=== PATIENT | female | born 1950 | race Caucasian/White ===

== ENCOUNTER → 2019-02-27 | Outpatient (CLI) | payer MEDICAID, MEDICARE | LOC: RAD 17:06 → MERGE 17:06 | PROVIDERS: ATTEND Family Medicine | DX: R51 Headache (principal) ==

== ENCOUNTER → 2019-04-23 | Outpatient (CLI) | payer MEDICAID, MEDICARE ==
--- NOTE | 2019-04-23 17:01 | RADIOLOGY REPORT (SQ) ---
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 TECHNIQUE: CT scan performed of the chest without intravenous contrast. Images reviewed with lung, soft tissue and bone windows. Reconstructed coronal and sagittal MPR images reviewed. All images st ored on PACS. All CT scanners at this facility use dose modulation, iterative reconstruction, and/or weight based d osing when appropriate to reduce radiation dose to as low as reasonably achievable (ALARA). [facility]: Dose Right [facility]: CareDose [facility]: Dose Right [facility]: Teradose 4D [facility]: Smart Technologies RADIATION DOSE: CT Rad equipment meets quality standard of care and radiation dose reduction techniq ues were employed. CTDIvol: 11.0 mGy. DLP: 408 mGy-cm. LIMITATIONS: No technical limitations. FINDINGS: LUNGS AND PLEURA: The trachea and main bronchi are patent. There is no bronchiectasis, br onchiolectasis or honeycombing. The partially calcified perifissural nodule in the right lower lobe (image 60 of series 4) is stable from 11/26/2017. There are also several noncalcified subpleural nodu les that are stable in size and number from the prior CT ; these include the 4 mm nodule on image 44 of series 4. The ground-glass opacities with a gravitational predilection associated with septal thickening are un changed. The curvilinear opacities that extend inward from the pleural surfaces could represent pare nchymal bands. There is no consolidation, pleural effusion, pleural thickening, or pneumothorax. HILAR AND MEDIASTINAL STRUCTURES: Evaluation of the tamy for adenopathy is limited due to the absence of intravenous contrast. There are stable nonenlarged right upper paratracheal, right lower peritra cheal and subcarinal lymph nodes. There is no mediastinal mass or pneumomediastinum. HEART AND VASCULAR STRUCTURES: No aneurysm of the thoracic aorta. There is atherosclerotic calcifica tion of the coronary arteries. There is no cardiomegaly or pericardial effusion. UPPER ABDOMEN: Cholecystectomy clips in the gallbladder fossa and surgical line anterior to the stoma ch. The spleen is normal in size. The 2.3 cm water attenuation cyst in the upper pole of the left k idney is unchanged. The 12 mm lipid rich adenoma in the right adrenal gland is also unchanged. BONES: No acute findings HARDWARE: None in the chest. OTHER: No other findings. IMPRESSION: Ground-glass opacities with a gravitational predilection associated with septal thickeni ng are unchanged. There are no ancillary findings of fibrosis including bronchiectasis, bronchiolect asis or honeycombing. Differential considerations include among other things pulmonary edema and air trapping in the setting of an obstructive small airway process such as asthma. TECHNICAL DOCUMENTATION: JOB ID: [id number] Quality ID # [id number]: Final reports with documentation of one or more dose reduction techniques (e.g., Au tomated exposure control, adjustment of the mA and/or kV according to patient size, use of iterative reconstruction technique) 2010 [employer]- All Rights Reserved Reading location - IP/workstation name: [email or web address]
== END ==
LOC: MERGE 03-17 13:00 → RAD 13:07
PROVIDERS: ATTEND Internal Medicine Critical Care Medicine
DX: J45.909 Unspecified asthma, uncomplicated (principal); J84.89 Other specified interstitial pulmonary diseases
CPT/HCPCS: 71250

== ENCOUNTER 2019-05-10 14:23 | Emergency (ER) | payer MEDICARE ==
[2019-05-10 14:29] VITALS: BP 146/68
--- NOTE | 2019-05-10 15:14 | ER Document Report ---
HPI - HPI Patient complains to provider of: right shoulder pain Time Seen by Provider: 05/10/19 15:05 Onset: Other - 3 days increased pain Pain Level: 3 Context: 68-year-old female with history of arthritis presents emergency department with complaints of right shoulder pain. Denies trauma. Reports she has arthritis but the pain is hurting more. She reports she took 3 of her hydrocodone this morning without relief of symptoms. Denies fever vomiting diarrhea. Denies trauma. Reports it hurts to move the shoulder. Associated Symptoms: None Exacerbated by: Movement Relieved by: Denies Similar symptoms previously: Yes Recently seen / treated by doctor: No - REPRODUCTIVE Reproductive: DENIES: : - MUSCULOSKELETAL Musculoskeletal: REPORTS: Extremity pain Past Medical History - General Information source: Patient - Social History Smoking Status: Never Smoker Frequency of alcohol use: None Drug Abuse: None Family History: Malignancy, CAD, DM Patient has suicidal ideation: No Patient has homicidal ideation: No - Past Medical History Cardiac Medical History: Reports: Hx Hypercholesterolemia Denies: Hx Atrial Fibrillation, Hx Congestive Heart Failure, Hx Coronary Artery Disease, Hx Heart Attack, Hx Hypertension, Hx Peripheral Vascular Disease, Hx Pulmonary Embolism, Hx Heart Murmur Pulmonary Medical History: Reports: Hx Asthma, Hx COPD, Hx Pneumonia Denies: Hx Bronchitis, Hx Respiratory Failure, Hx Sleep Apnea, Hx Tuberculosis Neurological Medical History: 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 Denies: Hx Seizures Renal/ Medical History: Reports: Hx Kidney Stones. Denies: Hx End Stage Renal Disease, Hx Peritoneal Dialysis Malignancy Medical History: Denies: Hx Lung Cancer GI Medical History: Reports: Hx Gastroesophageal Reflux Disease. Denies: Hx Crohn's Disease, Hx Hepatitis, Hx Hiatal Hernia, Hx Irritable Bowel, Hx Liver Failure, Hx Pancreatitis, Hx Ulcer Musculoskeletal Medical History: Reports Hx Arthritis - back, Reports Hx Fibromyalgia, Denies Hx Muscular Dystrophy Skin Medical History: Denies Hx Psoriasis Psychiatric Medical History: Reports: Hx Anxiety, Hx Depression Denies: Hx Bipolar Disorder, Hx Post Traumatic Stress Disorder, Hx Schizophrenia Traumatic Medical History: Denies: Hx Fractures, Hx Pneumothorax, Hx Traumatic Brain Injury Infectious Medical History: Denies: Hx Hepatitis, Hx VRE Past Surgical History: Reports: Hx Cholecystectomy, Hx Genitourinary Surgery - bladder tack, Hx Gynecologic Surgery - hysterectomy partial, Hx Hysterectomy, Hx Tonsillectomy, Hx Tubal Ligation. Denies: Hx Appendectomy, Hx Bowel Surgery, Hx Section, Hx Colostomy, Hx Coronary Artery Bypass Graft, Hx Gastric Bypass Surgery, Hx Herniorrhaphy, Hx Mastectomy, Hx Open Heart Surgery, Hx Pacemaker - Immunizations Immunizations up to date: Yes Hx Diphtheria, Pertussis, Tetanus Vaccination: No Hx Pneumococcal Vaccination: 03/22/11 Vertical Provider Document - CONSTITUTIONAL Agree With Documented VS: Yes Exam Limitations: No Limitations General Appearance: WD/WN, No Apparent Distress - Winces when moving the right shoulder - INFECTION CONTROL TRAVEL OUTSIDE OF THE [place] IN LAST 30 DAYS: Yes - [place] - HEENT HEENT: Atraumatic, Normocephalic - NECK Neck: Supple - RESPIRATORY Respiratory: Breath Sounds Normal, No Respiratory Distress - CARDIOVASCULAR Cardiovascular: Regular Rate - MUSCULOSKELETAL/EXTREMETIES Musculoskeletal/Extremeties: Tender - Complains of right shoulder tenderness no obvious deformity good radial pulse cap refill less than 3 seconds. No erythema no warmth no swelling - NEURO Level of Consciousness: Awake, Alert, Appropriate Motor/Sensory: No Motor Deficit - DERM Integumentary: Warm, Dry Adult Front & Back Diagram: 1 - Patient complains of pain Course - Re-evaluation Re-evalutation: 05/10/19 15:43 Shoulder X-Ray 05/10/19 15:10 IMPRESSION: NEGATIVE STUDY OF THE RIGHT SHOULDER. NO RADIOGRAPHIC EVIDENCE OF ACUTE INJURY. 05/10/19 17:25 Patient instructed on negative x-ray. Right shoulder with no obvious deformity no erythema no swelling no warmth requesting sling for comfort. Sling ordered. Patient instructed to follow-up with primary care provider take pain medications as prescribed return for concerns she verbalized understanding to all instructions. - Vital Signs Vital signs: Temp Pulse Resp BP Pulse Ox 97.9 F 90 16 146/68 H 96 05/10/19 14:28 05/10/19 14:28 05/10/19 14:28 05/10/19 14:28 05/10/19 14:28 - Diagnostic Test Radiology reviewed: Image reviewed, Reports reviewed Procedures - Immobilization Right Shoulder Immobilizer type: Sling Performed by: PCT Post-Proc Neuro Vasc Exam: Unchanged from pre-exam Discharge - Discharge Clinical Impression: Right shoulder pain Qualifiers: Chronicity: unspecified Qualified Code(s): M25.511 - Pain in right shoulder Condition: Stable Disposition: HOME, SELF-CARE Instructions: Arthritis ([facility]), Ice Packs ([facility]) Additional Instructions: *You have been evaluated for right shoulder pain *Your x-ray was negative for an acute injury *Rest/Ice/Elevate your shoulder *Follow up with your primary care provider within the next 5 days for reevaluation *Take your pain medication as prescribed *Return to ED for worsening condition, changes, needs Referrals: LINH CARR MD [Primary Care Provider] - Follow up in 3-5 days
--- NOTE | 2019-05-10 15:42 | RADIOLOGY REPORT (SQ) ---
EXAM DESCRIPTION: SHOULDER RIGHT 2 OR MORE VIEWS COMPLETED DATE/TIME: 05/10/2019 3:35 pm REASON FOR STUDY: pain, hx of arthritis COMPARISON: None. NUMBER OF VIEWS: Three views. TECHNIQUE: Internal rotation, external rotation, and Y view images acquired of the right shoulder. LIMITATIONS: None. FINDINGS: MINERALIZATION: Normal. BONES: No acute fracture. No worrisome bone lesions. JOINTS: No dislocation. VISUALIZED LUNGS AND RIBS: No pneumothorax. No rib fracture. SOFT TISSUES: No radiopaque foreign body. OTHER: No other significant finding. IMPRESSION: NEGATIVE STUDY OF THE RIGHT SHOULDER. NO RADIOGRAPHIC EVIDENCE OF ACUTE INJURY. TECHNICAL DOCUMENTATION: JOB ID: [id number] [employer]- All Rights Reserved Reading location - IP/workstation name: [email or web address]
== END 2019-05-10 16:44 | disposition home or self-care (01) ==
LOC: ER 14:23
DX: M25.511 Pain in right shoulder (principal); Z79.899 Other long term (current) drug therapy; J44.9 Chronic obstructive pulmonary disease, unspecified
CPT/HCPCS: 99283

== ENCOUNTER → 2019-05-12 | Outpatient (CLI) | payer MEDICARE ==
[2019-05-12 08:54] LABS: ABSOLUTE BASOPHILS # (AUTO) 0.1 10^3/uL (0.0-0.2); ABSOLUTE EOSINOPHILS # (AUTO) 0.1 10^3/uL (0.0-0.6); ABSOLUTE LYMPHOCYTES (AUTO) 2.4 10^3/uL (0.5-4.7); ABSOLUTE MONOCYTES (AUTO) 0.6 10^3/uL (0.1-1.4); ABSOLUTE NEUT (AUTO) 4.1 10^3/uL (1.7-8.2); BASOPHILS % (AUTO) 1.5 % (0-2); EOSINOPHILS % (AUTO) 0.7 % (0-6); HEMATOCRIT 40.5 % (36.0-47.0); HEMOGLOBIN 13.6 g/dL (12.0-15.5); LYMPHOCYTES % (AUTO) 32.5 % (13-45); MEAN CORPUSCULAR HGB CONC 33.6 g/dL (32.0-36.0); MEAN CORPUSCULAR VOLUME 86 fl (80-97); MONOCYTES % (AUTO) 8.3 % (3-13); PLATELET COUNT 318 10^3/uL (150-450); RED CELL DISTRIBUTION WIDTH 15.5 % (11.5-14.0); TOTAL CELLS COUNTED % (AUTO) 100 %; WHITE BLOOD COUNT 7.2 10^3/uL (4.0-10.5)
[2019-05-12 09:21] LABS: ALBUMIN 4.3 g/dL (3.5-5.0); ALKALINE PHOSPHATASE 102 U/L (38-126); ANION GAP 9 (5-19); ASPARTATE AMINO TRANSFERASE 18 U/L (14-36); BILIRUBIN,DIRECT 0.1 mg/dL (0.0-0.4); BILIRUBIN,TOTAL 0.3 mg/dL (0.2-1.3); BLOOD UREA NITROGEN 11 mg/dL (7-20); CALCIUM 9.9 mg/dL (8.4-10.2); CARBON DIOXIDE 22 mmol/L (22-30); CHLORIDE 109 mmol/L (98-107); GLUCOSE 89 mg/dL (75-110); POTASSIUM 4.6 mmol/L (3.6-5.0); TOTAL PROTEIN 7.8 g/dL (6.3-8.2)
== END ==
LOC: LAB 07:48
PROVIDERS: ATTEND Family Medicine
DX: R68.89 Other general symptoms and signs (principal); F50.89 Other specified eating disorder; Z79.899 Other long term (current) drug therapy
CPT/HCPCS: 36415; 80053; 82728; 83036; 83540; 84443; 85025

== ENCOUNTER → 2019-05-13 | Outpatient (CLI) | payer MEDICARE ==
[2019-05-13 16:48] LABS: A TYPE INFLUENZA AG NEGATIVE (NEGATIVE); B INFLUENZA AG NEGATIVE (NEGATIVE)
== END ==
LOC: OD 15:54
PROVIDERS: ATTEND Family Medicine
DX: R50.9 Fever, unspecified (principal); J02.9 Acute pharyngitis, unspecified
CPT/HCPCS: 87070; 87804; 87880

== ENCOUNTER → 2019-06-18 | Outpatient (CLI) | payer MEDICARE ==
--- NOTE | 2019-06-19 10:46 | RADIOLOGY REPORT (SQ) ---
EXAM DESCRIPTION: MRI RT UPPER JOINT WITHOUT COMPLETED DATE/TIME: 06/18/2019 8:23 pm REASON FOR STUDY: (M25.511)PAIN IN RIGHT SHOULDER M25.511 PAIN IN RIGHT SHOULDER COMPARISON: None. TECHNIQUE: Right shoulder images acquired and stored on PACS. Multiplanar imaging to include fat sen sitive sequences such as T1, water sensitive sequences such as FST2/STIR, cartilage sensitive sequenc es such as FSPD/gradient-echo sequences. LIMITATIONS: Motion artifact. FINDINGS: BONE MARROW AND CORTEX: No worrisome bone lesions or marrow replacement. No occult fractur es. JOINT OR BURSAL EFFUSION: No significant joint or bursal fluid. No suggestion of loose bodies. GLENO-HUMERAL ARTICULATION: Intact. ACROMION AND AC JOINT: Type 1 acromion. No down-sloping or distal spur. Sub-acromial space maintain ed. No significant AC joint arthropathy. ROTATOR CUFF AND INTERVAL: Tendinosis. No significant tear identified. No rotator interval tear. No rotator interval thickening to suggest adhesive capsulitis. LABRUM AND BICEPS LABRAL COMPLEX: Intact. No labral tear. Intra-articular long-head biceps tendon n ormal. Distal biceps in normal location in bicipital groove. REMAINDER OF LABRUM AND IGHL : No gross tear or paralabral cyst formation. Labral evaluation is less than optimal without joint distention. No thickening of IGHL to suggest adhesive capsulitis. PERIARTICULAR AND ADJACENT SOFT TISSUES: No masses or abnormal nodes. OTHER: No other significant finding. IMPRESSION: Limitations due to motion. Cuff tendinosis without significant tear. TECHNICAL DOCUMENTATION: JOB ID: [id number] 2010 [employer]- All Rights Reserved Reading location - IP/workstation name: [email or web address]
== END ==
LOC: RAD 19:05
PROVIDERS: ATTEND Neurological Surgery
DX: M25.511 Pain in right shoulder (principal)

== ENCOUNTER → 2019-08-27 | Outpatient (CLI) | payer MEDICARE ==
--- NOTE | 2019-08-27 09:38 | RADIOLOGY REPORT (SQ) ---
EXAM DESCRIPTION: U/S ABDOMEN COMPLETE W/O DOP IMAGES COMPLETED DATE/TIME: 08/27/2019 9:08 am REASON FOR STUDY: (R10.13)EPIGASTRIC PAIN R10.13 EPIGASTRIC PAIN COMPARISON: CT chest dated 04/23/2019 TECHNIQUE: Dynamic and static grayscale images acquired of the abdomen and recorded on PACS. Additio nal selected color Doppler and spectral images recorded. Note: Study does not meet criteria for complete doppler/duplex scan LIMITATIONS: None. FINDINGS: PANCREAS: No masses. Visualized pancreatic duct normal caliber. LIVER: Hepatomegaly. The liver measures 19.2 cm in length. Liver is echogenic consistent with fatty infiltration. LIVER VASCULATURE: Normal directional flow of the main portal vein and hepatic veins. GALLBLADDER: Surgically absent. ULTRASOUND-DETECTED FISHER'S SIGN: Negative. INTRAHEPATIC DUCTS AND COMMON DUCT: CBD and intrahepatic ducts normal caliber. No filling defects. INFERIOR VENA CAVA: Normal flow. AORTA: No aneurysm. RIGHT KIDNEY: Normal size. Normal echogenicity. No solid or suspicious masses. No hydronephros is. No calcifications. LEFT KIDNEY: Normal size. Normal echogenicity. No solid or suspicious masses. Left renal cyst i s again noted measuring approximately 3.7 x 3.0 x 2.7 cm. No hydronephrosis. No calcifications. SPLEEN: Normal size. No solid masses. PERITONEAL AND PLEURAL SPACES: No ascites or effusions. OTHER: No other significant finding. IMPRESSION: 1. Hepatomegaly with fatty infiltration of liver. 2. Left renal cyst. TECHNICAL DOCUMENTATION: JOB ID: [id number] 2010 [employer]- All Rights Reserved Reading location - IP/workstation name: [email or web address]
== END ==
LOC: RAD 07:36
PROVIDERS: ATTEND Internal Medicine Gastroenterology
DX: R10.13 Epigastric pain (principal); N28.1 Cyst of kidney, acquired; K76.0 Fatty (change of) liver, not elsewhere classified; R16.0 Hepatomegaly, not elsewhere classified
CPT/HCPCS: 76700

== ENCOUNTER → 2019-09-22 | Outpatient (CLI) | payer MEDICARE ==
--- NOTE | 2019-09-22 16:07 | RADIOLOGY REPORT (SQ) ---
EXAM DESCRIPTION: CT CHEST WITHOUT IMAGES COMPLETED DATE/TIME: 09/22/2019 3:49 pm REASON FOR STUDY: R91.8 OTHER NONSPECIFIC ABNORMAL FINDING OF LUNG FIELD R91.8 OTHER NONSPECIFIC AB NORMAL FINDING OF LUNG FIELD COMPARISON: CT chest 04/23/2019, 11/26/2017, 09/18/2013, 01/07/2013 TECHNIQUE: CT scan performed of the chest without intravenous contrast. Images reviewed with lung, soft tissue and bone windows. Reconstructed coronal and sagittal MPR images reviewed. All images st ored on PACS. All CT scanners at this facility use dose modulation, iterative reconstruction, and/or weight based d osing when appropriate to reduce radiation dose to as low as reasonably achievable (ALARA). [facility]: Dose Right [facility]: CareDose [facility]: Dose Right [facility]: Teradose 4D [facility]: [employer] RADIATION DOSE: CT Rad equipment meets quality standard of care and radiation dose reduction techniq ues were employed. CTDIvol: 14.6 mGy. DLP: 592 mGy-cm. mGy. LIMITATIONS: No technical limitations. FINDINGS: LUNGS AND PLEURA: No acute infiltrates. No pleural effusion. No pneumothorax. Stable bandlike scarring or atelectasis is present at both lung bases. Less than 4 mm smooth round noncalcified granuloma right lower lobe axial image 64 unchanged since , left lower lobe image 47 unchanged from 2012. No worrisome pulmonary nodules. HILAR AND MEDIASTINAL STRUCTURES: No identified masses or abnormal nodes. No obvious aneurysm. HEART AND VASCULAR STRUCTURES: No aneurysm. No pericardial effusion. UPPER ABDOMEN: 9 mm right adrenal adenoma, fatty density, unchanged from multiple previous studies. Left upper pole 2.5 cm parapelvic cyst 2.5 cm, stable compared to previous studies. Post cholecystec ruy THYROID AND OTHER SOFT TISSUES: No masses. No adenopathy. BONES: No significant finding. HARDWARE: None in the chest. OTHER: No other significant findings. IMPRESSION: Stable bibasilar scarring TECHNICAL DOCUMENTATION: JOB ID: [id number] Quality ID # [id number]: Final reports with documentation of one or more dose reduction techniques (e.g., Au tomated exposure control, adjustment of the mA and/or kV according to patient size, use of iterative reconstruction technique) 2010 [employer]- All Rights Reserved Reading location - IP/workstation name: [facility]
== END ==
LOC: RAD 15:09
PROVIDERS: ATTEND Internal Medicine Critical Care Medicine
DX: R91.8 Other nonspecific abnormal finding of lung field (principal); D35.01 Benign neoplasm of right adrenal gland; N94.89 Other specified conditions associated with female genital organs and menstrual cycle
CPT/HCPCS: 71250

== ENCOUNTER 2019-12-31 13:19 | Emergency (ER) | payer MEDICARE ==
[2019-12-31] MEDS ORDERED: NYSTATIN/DEXAMETH/DIPHEN SUSP 120 ML PO ONE (15:57)
--- NOTE | 2019-12-31 15:57 | ER Document Report ---
ED ENT - General Chief Complaint: Sore Throat Stated Complaint: FEVER/SORE THROAT Time Seen by Provider: 12/31/19 14:51 Primary Care Provider: PEBBLES ORTIZ MD [Primary Care Provider] - Follow up as needed Notes: CHIEF COMPLAINT: Sore throat for 1 week HPI: 69-year-old female presenting to the emergency department for sore throat with painful swallowing for 1 week. No fever. No cough. No chest pain shortness of breath. Has taken no medications for her symptoms. Patient states she is not concerned about COVID testing ROS: See HPI - all other systems were reviewed and are otherwise negative Constitutional: no fever Eyes: no drainage, no blurred vision ENT: no runny nose, positive sore throat Cardiovascular: no chest pain Resp: no SOB, no cough GI: no vomiting, no diarrhea, no abdominal pain : no dysuria Integumentary: no rash Allergy: no hives Musculoskeletal: no extremity pain or swelling Neurological: no numbness/tingling, no weakness MEDICATIONS: I agree with the patient medications as charted by the RN. ALLERGIES: I agree with the allergies as charted by the RN. PAST MEDICAL HISTORY/PAST SURGICAL HISTORY: Reviewed and agree as charted by RN. SOCIAL HISTORY: Reviewed and agree as charted by RN. FAMILY HISTORY: No significant familial comorbid conditions directly related to patient complaint EXAM: Reviewed vital signs as charted by RN. CONSTITUTIONAL: Alert and oriented and responds appropriately to questions. Well-appearing; well-nourished HEAD: Normocephalic; atraumatic EYES: PERRL; Conjunctivae clear, sclerae non-icteric ENT: normal nose; no rhinorrhea; moist mucous membranes; posterior pharynx noted to have multiple small aphthous type ulcers, no uvula edema or deviation, no tonsillar hypertrophy, phonation normal NECK: Supple without meningismus; non-tender; no cervical lymphadenopathy, no masses CARD: RRR; no murmurs, no clicks, no rubs, no gallops; symmetric distal pulses RESP: Normal chest excursion without splinting or tachypnea; breath sounds clear and equal bilaterally; no wheezes, no rhonchi, no rales, pulse oximetry 97% on room air not hypoxic ABD/GI: Normal bowel sounds; non-distended; soft, non-tender, no rebound, no guarding; no palpable organomegaly or masses. BACK: The back appears normal EXT: Normal ROM in all joints; no cyanosis, no effusions, no edema SKIN: Normal color for age and race; warm; dry; good turgor NEURO: Moves all extremities equally; Motor and sensory function intact PSYCH: The patient's mood and manner are appropriate. Grooming and personal hygiene are appropriate. MDM: 69-year-old female presenting for sore throat appears to have several aphthous ulcers in the posterior pharynx. Rapid strep was negative. Patient declines other testing, is not concerned about lung problems. Phonation is normal afebrile rapid strep negative. She declines COVID testing. Will treat with Magic mouthwash, return instructions discussed, follow-up ENT or PCP TRAVEL OUTSIDE OF THE [place] IN LAST 30 DAYS: No - Related Data Allergies/Adverse Reactions: No Known Allergies Allergy (Verified 03/01/19 08:32) Past Medical History - Social History Smoking Status: Current Every Day Smoker Family History: Malignancy, CAD, DM - Past Medical History Cardiac Medical History: Reports: Hx Hypercholesterolemia Denies: Hx Atrial Fibrillation, Hx Congestive Heart Failure, Hx Coronary Artery Disease, Hx Heart Attack, Hx Hypertension, Hx Peripheral Vascular Disease, Hx Pulmonary Embolism, Hx Heart Murmur Pulmonary Medical History: Reports: Hx Asthma, Hx COPD, Hx Pneumonia Denies: Hx Bronchitis, Hx Respiratory Failure, Hx Sleep Apnea, Hx Tuberculosis Neurological Medical History: 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 Denies: Hx Seizures Renal/ Medical History: Reports: Hx Kidney Stones. Denies: Hx End Stage Renal Disease, Hx Peritoneal Dialysis Malignancy Medical History: Denies: Hx Lung Cancer GI Medical History: Reports: Hx Gastroesophageal Reflux Disease. Denies: Hx Crohn's Disease, Hx Hepatitis, Hx Hiatal Hernia, Hx Irritable Bowel, Hx Liver Failure, Hx Pancreatitis, Hx Ulcer Musculoskeletal Medical History: Reports Hx Arthritis - back, Reports Hx Fibromyalgia, Denies Hx Muscular Dystrophy Skin Medical History: Denies Hx Psoriasis Psychiatric Medical History: Reports: Hx Anxiety, Hx Depression Denies: Hx Bipolar Disorder, Hx Post Traumatic Stress Disorder, Hx Schizophrenia Traumatic Medical History: Denies: Hx Fractures, Hx Pneumothorax, Hx Traumatic Brain Injury Infectious Medical History: Denies: Hx Hepatitis, Hx VRE Past Surgical History: Reports: Hx Cholecystectomy, Hx Genitourinary Surgery - bladder tack, Hx Gynecologic Surgery - hysterectomy partial, Hx Hysterectomy, Hx Tonsillectomy, Hx Tubal Ligation. Denies: Hx Appendectomy, Hx Bowel Surgery, Hx Section, Hx Colostomy, Hx Coronary Artery Bypass Graft, Hx Gastric Bypass Surgery, Hx Herniorrhaphy, Hx Mastectomy, Hx Open Heart Surgery, Hx Pacemaker - Immunizations Immunizations up to date: Yes Hx Diphtheria, Pertussis, Tetanus Vaccination: No Hx Pneumococcal Vaccination: 03/22/11 Physical Exam - Vital signs Vitals: Temp Pulse Resp BP Pulse Ox 98.5 F 80 19 137/70 H 100 12/31/19 14:00 12/31/19 14:00 12/31/19 14:00 12/31/19 14:00 12/31/19 14:00 Course - Vital Signs Vital signs: Temp Pulse Resp BP Pulse Ox 98.5 F 76 16 147/63 H 96 12/31/19 16:24 12/31/19 16:24 12/31/19 16:24 12/31/19 16:24 12/31/19 16:24 Discharge - Discharge Clinical Impression: Aphthous stomatitis Condition: Stable Disposition: HOME, SELF-CARE Additional Instructions: Your strep test today was negative. Use the Magic mouthwash as prescribed. Follow-up with ENT for further evaluation and treatment call for appointment. Prescriptions: Nystatin/Dexameth/Diphen [Magic Mouthwash ([facility] Formula) Susp] 5 ml PO QID #120 ml Referrals: PEBBLES ORTIZ MD [Primary Care Provider] - Follow up as needed PRICE DE LA ROSA DO [ASSOCIATE] - Follow up as needed
[2019-12-31 16:26] VITALS: BP 147/63
== END 2019-12-31 16:40 | disposition home or self-care (01) ==
LOC: ER 13:19
DX: K12.0 Recurrent oral aphthae (principal); J02.9 Acute pharyngitis, unspecified; F17.200 Nicotine dependence, unspecified, uncomplicated; J44.9 Chronic obstructive pulmonary disease, unspecified
CPT/HCPCS: 99282; 87070; 87880; A9270; J3490

== ENCOUNTER 2020-01-19 14:15 | Emergency (ER) | payer MEDICARE ==
[2020-01-19 14:40] VITALS: BP 138/67
[2020-01-19] MEDS ORDERED: METHYLPREDNISOLONE INJ 40 MG/1 ML SDV IM ONE (14:48)
[2020-01-19] MEDS ORDERED: METHOCARBAMOL 500 MG TABLET PO ONE (14:48)
--- NOTE | 2020-01-19 15:38 | ER Document Report ---
HPI - HPI Patient complains to provider of: right hip pain Time Seen by Provider: 01/19/20 14:43 Pain Level: 5 Context: 69-year-old female who presents to the emergency room complaining of right posterior buttock pain that radiates down her right leg for the past 6 days. She denies any acute trauma or injury. Does have a history of chronic back pain and neck pain. States she has been using oxycodone and heat without relief. She denies any urinary symptoms. She denies any loss control of her bowels or bladder. She denies any saddle anesthesia. States it is painful when she tries to go up and down stairs. Associated Symptoms: None Exacerbated by: Movement, Walking Relieved by: Denies Similar symptoms previously: No Recently seen / treated by doctor: No - ROS Systems Reviewed and Negative: Yes All other systems reviewed and negative - CONSTITUTIONAL Constitutional: DENIES: Fever - NEURO Neurology: DENIES: Weakness - GASTROINTESTINAL Gastrointestinal: DENIES: Abdominal Pain, Nausea - URINARY Urinary: DENIES: Dysuria - REPRODUCTIVE Reproductive: DENIES: : - MUSCULOSKELETAL Musculoskeletal: REPORTS: Extremity pain - DERM Skin Color: Normal Skin Problems: None Past Medical History - General Information source: Patient - Social History Smoking Status: Current Every Day Smoker Chew tobacco use (# tins/day): No Family History: Malignancy, CAD, DM Patient has homicidal ideation: No - Past Medical History Cardiac Medical History: Reports: Hx Hypercholesterolemia Denies: Hx Atrial Fibrillation, Hx Congestive Heart Failure, Hx Coronary Artery Disease, Hx Heart Attack, Hx Hypertension, Hx Peripheral Vascular Disease, Hx Pulmonary Embolism, Hx Heart Murmur Pulmonary Medical History: Reports: Hx Asthma, Hx COPD, Hx Pneumonia Denies: Hx Bronchitis, Hx Respiratory Failure, Hx Sleep Apnea, Hx Tuberculosis Neurological Medical History: Reports: Hx Cerebrovascular Accident - RT SIDE,WA LKING ISSUE/PRN CANE, Hx Migraine. Denies: Hx Seizures Renal/ Medical History: Reports: Hx Kidney Stones. Denies: Hx End Stage Renal Disease, Hx Peritoneal Dialysis Malignancy Medical History: Denies: Hx Lung Cancer GI Medical History: Reports: Hx Gastroesophageal Reflux Disease. Denies: Hx Crohn's Disease, Hx Hepatitis, Hx Hiatal Hernia, Hx Irritable Bowel, Hx Liver Failure, Hx Pancreatitis, Hx Ulcer Musculoskeletal Medical History: Reports Hx Arthritis - back, Reports Hx Fibromyalgia, Denies Hx Muscular Dystrophy Skin Medical History: Denies Hx Psoriasis Psychiatric Medical History: Reports: Hx Anxiety, Hx Depression Denies: Hx Bipolar Disorder, Hx Post Traumatic Stress Disorder, Hx Schizophrenia Traumatic Medical History: Denies: Hx Fractures, Hx Pneumothorax, Hx Traumatic Brain Injury Infectious Medical History: Denies: Hx Hepatitis, Hx VRE Past Surgical History: Reports: Hx Cholecystectomy, Hx Genitourinary Surgery - bladder tack, Hx Gynecologic Surgery - hysterectomy partial, Hx Hysterectomy, Hx Tonsillectomy, Hx Tubal Ligation. Denies: Hx Appendectomy, Hx Bowel Surgery, Hx Section, Hx Colostomy, Hx Coronary Artery Bypass Graft, Hx Gastric Bypass Surgery, Hx Herniorrhaphy, Hx Mastectomy, Hx Open Heart Surgery, Hx Pacemaker - Immunizations Immunizations up to date: Yes Hx Diphtheria, Pertussis, Tetanus Vaccination: No Hx Pneumococcal Vaccination: 03/22/11 Vertical Provider Document - CONSTITUTIONAL Agree With Documented VS: Yes Exam Limitations: No Limitations General Appearance: Mild Distress - INFECTION CONTROL TRAVEL OUTSIDE OF THE [place] IN LAST 30 DAYS: No - HEENT HEENT: Atraumatic, Normocephalic - NECK Neck: Normal Inspection, Supple, Thyroid Normal - RESPIRATORY Respiratory: Breath Sounds Normal, No Respiratory Distress - BACK Back: Abnormal Inspection - Nontender to palpation over the lumbar vertebral spine. There is tenderness noted over the right sciatic notch. There are muscle spasms noted in the lower lumbar region. There are no step-offs. No deformities. Negative straight leg raising on the left, positive straight leg raising on the right at 40 degrees. - MUSCULOSKELETAL/EXTREMETIES Musculoskeletal/Extremeties: FROM - Full range of motion flexion, extension, abduction and adduction of the right hip without difficulty., Non-Tender - NEURO Level of Consciousness: Awake, Alert, Appropriate Motor/Sensory: No Motor Deficit, No Sensory Deficit Deep Tendon Reflexes: 2+ Notes: Positive pedal pulses bilaterally. She is ambulatory with slight limping noted to the right leg. She is neurovascular intact. - DERM Integumentary: Warm, Dry, No Rash Course - Re-evaluation Re-evalutation: 01/19/20 15:33 Patient is resting comfortably with decreased pain. She has negative straight leg raising bilaterally. Ambulatory with slight limping noted to right leg. Neurovascularly intact. Will discharge home on p.o. steroids, p.o. anti-inflammatories. Counseled on the importance of outpatient follow-up with her primary care physician if not improving in 2 to 3 days. Patient was given strict return to the emergency room guidelines. Return for any new or worsening symptoms. All questions were answered. Patient verbalized understanding and agrees with plan of care. - Vital Signs Vital signs: Temp Pulse Resp BP Pulse Ox 98.4 F 96 18 138/67 H 95 01/19/20 14:39 01/19/20 14:39 01/19/20 14:39 01/19/20 14:39 01/19/20 14:39 Discharge - Discharge Clinical Impression: Right sided sciatica Condition: Stable Disposition: HOME, SELF-CARE Instructions: Sciatica ([facility]) Additional Instructions: You have been seen in the Emergency Department (ED) today for sciatica pain. Your workup and exam have not shown any acute abnormalities and you are likely suffering from muscle strain or possible problems with your discs, but there is no treatment that will fix your symptoms at this time. Please take the Zanaflex and Medrol Dosepak that has been prescribed as directed. You should also purchase a local lidocaine cream such as "aspercreme with lidocaine" and use per bottle instructions to the affected area. Apply heat to the area as often as you are able. Continue to keep active and avoid prolonged periods of bed rest. Please follow up with your doctor as soon as possible regarding today's ED visit and your back pain. Return to the ED for worsening back pain, fever, weakness or numbness of either leg, or if you develop either (1) an inability to urinate or have bowel movements, or (2) loss of your ability to control your bathroom functions (if you start having "accidents"), or if you develop other new symptoms that concern you.concern you. Prescriptions: Methylprednisolone [Medrol Dosepack (4 mg/Tab) 21 Tab/Dosepak] 4 mg PO ASDIR PRN #21 tab.ds.pk PRN Reason: Tizanidine HCl [Zanaflex] 2 mg PO BID #14 capsule Referrals: PEBBLES ORTIZ MD [Primary Care Provider] - Follow up as needed
--- NOTE | 2020-01-19 22:02 | ER Document Report ---
Doctor's Note Notes: 01/19/20 22:01 Patient was called and notified that he has a positive gonorrhea test. He was counseled that his partner needs to be tested and treated. Patient is aware that he is already been treated for both gonorrhea and chlamydia. No sexual activity for 1 week. Outpatient follow-up if not improving with either primary care or health department as discussed.
== END 2020-01-19 15:48 | disposition home or self-care (01) ==
LOC: ER 14:15
DX: M54.31 Sciatica, right side (principal); G89.29 Other chronic pain; M54.2 Cervicalgia; M25.551 Pain in right hip; M54.9 Dorsalgia, unspecified; F17.200 Nicotine dependence, unspecified, uncomplicated; E78.00 Pure hypercholesterolemia, unspecified; Z87.442 Personal history of urinary calculi
CPT/HCPCS: 99283; 96372; A9270; J2920

== ENCOUNTER 2020-02-06 15:46 | Emergency (ER) | payer MEDICARE ==
[2020-02-06] MEDS ORDERED: KETOROLAC TROMETHAMINE INJ/PF 30 MG/1 ML SDV IV ONE (16:53)
--- NOTE | 2020-02-06 16:54 | ER Document Report ---
ED Medical Screen (RME) - General Chief Complaint: Flank Pain Stated Complaint: HIP PAIN Time Seen by Provider: 02/06/20 16:46 Primary Care Provider: PEBBLES ORTIZ MD [Primary Care Provider] - Follow up as needed Mode of Arrival: Ambulatory Information source: Patient Notes: 69-year-old female presents to ED for complaint of right flank pain that radiates around to the right pelvic area. We will get blood urine and a CT abdomen pelvis without contrast. We will also give her a Toradol shot. She does have tenderness to palpation to the right flank and abdomen. Patient is alert oriented respirations regular nonlabored speaking in full sentences. She states she does smoke a pack a day no alcohol or drugs. I have greeted and performed a rapid initial assessment of this patient. A comprehensive ED assessment and evaluation of the patient, analysis of test results and completion of medical decision making process will be conducted by an additional ED providers. TRAVEL OUTSIDE OF THE [place] IN LAST 30 DAYS: No - Related Data Allergies/Adverse Reactions: No Known Allergies Allergy (Verified 01/19/20 14:41) Past Medical History - Social History Family history: None - Past Medical History Cardiac Medical History: Reports: Hx Hypercholesterolemia Denies: Hx Atrial Fibrillation, Hx Congestive Heart Failure, Hx Coronary Artery Disease, Hx Heart Attack, Hx Hypertension, Hx Peripheral Vascular Disease, Hx Pulmonary Embolism, Hx Heart Murmur Pulmonary Medical History: Reports: Hx Asthma, Hx COPD, Hx Pneumonia Denies: Hx Bronchitis, Hx Respiratory Failure, Hx Sleep Apnea, Hx Tuberculosis Neurological Medical History: 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 Denies: Hx Seizures Renal/ Medical History: Reports: Hx Kidney Stones. Denies: Hx End Stage Renal Disease, Hx Peritoneal Dialysis Malignancy Medical History: Denies: Hx Lung Cancer GI Medical History: Reports: Hx Gastroesophageal Reflux Disease. Denies: Hx Crohn's Disease, Hx Hepatitis, Hx Hiatal Hernia, Hx Irritable Bowel, Hx Liver Fa ilure, Hx Pancreatitis, Hx Ulcer Musculoskeltal Medical History: Reports Hx Arthritis - back, Reports Hx Fibromyalgia, Denies Hx Muscular Dystrophy Skin Medical History: Denies Hx Psoriasis Psychiatric Medical History: Reports: Hx Anxiety, Hx Depression Denies: Hx Bipolar Disorder, Hx Post Traumatic Stress Disorder, Hx James izophrenia Traumatic Medical History: Denies: Hx Fractures, Hx Pneumothorax, Hx Traumatic Brain Injury Infectious Medical History: Denies: Hx Hepatitis, Hx VRE Past Surgical History: Reports: Hx Cholecystectomy, Hx Genitourinary Surgery - bladder tack, Hx Gynecologic Surgery - hysterectomy partial, Hx Hysterectomy, Hx Tonsillectomy, Hx Tubal Ligation. Denies: Hx Appendectomy, Hx Bowel Surgery, Hx Section, Hx Colostomy, Hx Coronary Artery Bypass Graft, Hx Gastric Bypass Surgery, Hx Herniorrhaphy, Hx Mastectomy, Hx Open Heart Surgery, Hx Pacemaker - Immunizations Immunizations up to date: Yes Hx Diphtheria, Pertussis, Tetanus Vaccination: No Physical Exam - Vital signs Vitals: Temp Pulse Resp BP Pulse Ox 98.2 F 92 18 146/90 H 96 02/06/20 15:53 02/06/20 15:53 02/06/20 15:53 02/06/20 15:53 02/06/20 15:53 Course - Vital Signs Vital signs: Temp Pulse Resp BP Pulse Ox 98.2 F 92 18 146/90 H 96 02/06/20 15:53 02/06/20 15:53 02/06/20 15:53 02/06/20 15:53 02/06/20 15:53 Doctor's Discharge - Discharge Referrals: PEBBLES ORTIZ MD [Primary Care Provider] - Follow up as needed
[2020-02-06] MEDS ORDERED: KETOROLAC TROMETHAMINE INJ/PF 30 MG/1 ML SDV IM ONE (17:16)
[2020-02-06 17:35] LABS: ABSOLUTE EOSINOPHILS # (AUTO) 0.1 10^3/uL (0.0-0.6); ABSOLUTE LYMPHOCYTES (AUTO) 2.6 10^3/uL (0.5-4.7); ABSOLUTE MONOCYTES (AUTO) 0.4 10^3/uL (0.1-1.4); ABSOLUTE NEUT (AUTO) 2.9 10^3/uL (1.7-8.2); BASOPHILS % (AUTO) 0.3 % (0-2); EOSINOPHILS % (AUTO) 1.9 % (0-6); HEMATOCRIT 36.5 % (36.0-47.0); HEMOGLOBIN 12.5 g/dL (12.0-15.5); LYMPHOCYTES % (AUTO) 43.2 % (13-45); MEAN CORPUSCULAR HGB CONC 34.2 g/dL (32.0-36.0); MEAN CORPUSCULAR VOLUME 88 fl (80-97); MONOCYTES % (AUTO) 7.2 % (3-13); PLATELET COUNT 340 10^3/uL (150-450); RED BLOOD COUNT 4.16 10^6/uL (3.72-5.28); RED CELL DISTRIBUTION WIDTH 17.4 % (11.5-14.0); SEGMENTED NEUTROPHILS % (AUTO) 47.4 % (42-78); TOTAL CELLS COUNTED % (AUTO) 100 %; WHITE BLOOD COUNT 6.1 10^3/uL (4.0-10.5)
[2020-02-06 17:43] LABS: APPEARANCE,URINE CLEAR; BILIRUBIN,URINE NEGATIVE (NEGATIVE); COLOR,URINE YELLOW; GLUCOSE, URINE NEGATIVE (NEGATIVE); KETONES,URINE NEGATIVE (NEGATIVE); LEUKOCYTE ESTERASE,URINE NEGATIVE (NEGATIVE); NITRITE,URINE NEGATIVE (NEGATIVE); PROTEIN,URINE NEGATIVE (NEGATIVE); URINE SPECIFIC GRAVITY 1.017; UROBILINOGEN,URINE NEGATIVE mg/dL (<2.0)
[2020-02-06 17:53] LABS: ALBUMIN 4.2 g/dL (3.5-5.0); ALKALINE PHOSPHATASE 122 U/L (38-126); ANION GAP 10 (5-19); ASPARTATE AMINO TRANSFERASE 20 U/L (14-36); BILIRUBIN,DIRECT 0.2 mg/dL (0.0-0.4); BILIRUBIN,TOTAL 0.3 mg/dL (0.2-1.3); BLOOD UREA NITROGEN 8 mg/dL (7-20); CALCIUM 9.9 mg/dL (8.4-10.2); CARBON DIOXIDE 24 mmol/L (22-30); CHLORIDE 107 mmol/L (98-107); GLUCOSE 80 mg/dL (75-110); POTASSIUM 4.5 mmol/L (3.6-5.0); TOTAL PROTEIN 7.7 g/dL (6.3-8.2)
--- NOTE | 2020-02-06 18:02 | RADIOLOGY REPORT (SQ) ---
EXAM DESCRIPTION: CT ABD/PELVIS NO ORAL OR IV IMAGES COMPLETED DATE/TIME: 02/06/2020 5:45 pm REASON FOR STUDY: Right flank pain COMPARISON: None. TECHNIQUE: CT scan of the abdomen and pelvis performed without intravenous or oral contrast. Images reviewed with lung, soft tissue, and bone windows. Reconstructed coronal and sagittal MPR images revi ewed. All images stored on PACS. All CT scanners at this facility use dose modulation, iterative reconstruction, and/or weight based d osing when appropriate to reduce radiation dose to as low as reasonably achievable (ALARA). [facility]: Dose Right [facility]: CareDose [facility]: Dose Right [facility]: Teradose 4D [facility]: Smart Healthbox RADIATION DOSE: CT Rad equipment meets quality standard of care and radiation dose reduction techniq ues were employed. CTDIvol: 10.8 mGy. DLP: 575 mGy-cm.mGy. LIMITATIONS: None. FINDINGS: LOWER CHEST: No significant findings. No nodules or infiltrates. NON-CONTRASTED LIVER, SPLEEN, ADRENALS: Liver and spleen are normal. There is 15 mm low-density lesi on in the right adrenal gland. PANCREAS: No masses. No peripancreatic inflammatory changes. GALLBLADDER: Surgically absent. RIGHT KIDNEY AND URETER: No suspicious masses. Assessment limited by lack of IV contrast. No signif icant calcifications. No hydronephrosis or hydroureter. LEFT KIDNEY AND URETER: No suspicious masses. There is a parapelvic cyst in the upper pole of the le ft kidney. No significant calcifications. No hydronephrosis or hydroureter. AORTA AND RETROPERITONEUM: No aneurysm. No retroperitoneal masses or adenopathy. BOWEL AND PERITONEAL CAVITY: No obvious masses or inflammatory changes. No free fluid. APPENDIX: Not identified. PELVIS, BLADDER, AND ABDOMINAL WALL:No abnormal masses. No free fluid. Bladder normal. BONES: No significant findings. OTHER: No other significant finding. IMPRESSION: Small right adrenal adenoma. No acute findings in the abdomen or pelvis. COMMENT: Quality ID # [id number]: Final reports with documentation of one or more dose reduction techniques (e.g., Automated exposure control, adjustment of the mA and/or kV according to patient size, use of iterative reconstruction technique) TECHNICAL DOCUMENTATION: JOB ID: [id number] 2010 [employer]- All Rights Reserved Reading location - IP/workstation name: [email or web address]
[2020-02-06] MEDS ORDERED: HYDROMORPHONE HCL INJ/PF 2 MG/ML AMPULE IM ONE (19:41)
--- NOTE | 2020-02-06 19:46 | ER Document Report ---
ED General - General Chief Complaint: Abdominal Pain Stated Complaint: HIP PAIN Time Seen by Provider: 02/06/20 16:46 Primary Care Provider: PEBBLES ORTIZ MD [Primary Care Provider] - Follow up as needed Mode of Arrival: Ambulatory Notes: 69 year old female with about 1 month or longer of right flank pain. Seen here about a month ago and it is still there and may be worsening. No fever or chills. No chest pain or sob. No covid exposure. Pain is sharp and worse with movement. Resting may make it a bit better. No injury. TRAVEL OUTSIDE OF THE [place] IN LAST 30 DAYS: No - HPI Onset: Other Onset/Duration: Constant Severity: Moderate Associated symptoms: None Exacerbated by: Movement, Walking, Coughing Relieved by: Denies - Related Data Allergies/Adverse Reactions: No Known Allergies Allergy (Verified 02/06/20 17:30) Home Medications: Oxycodone 5mg Past Medical History - General Information source: Patient - Social History Smoking Status: Current Every Day Smoker Frequency of alcohol use: None Drug Abuse: None Family History: Malignancy, CAD, DM Patient has homicidal ideation: No - Past Medical History Cardiac Medical History: Reports: Hx Hypercholesterolemia Denies: Hx Atrial Fibrillation, Hx Congestive Heart Failure, Hx Coronary Artery Disease, Hx Heart Attack, Hx Hypertension, Hx Peripheral Vascular Disease, Hx Pulmonary Embolism, Hx Heart Murmur Pulmonary Medical History: Reports: Hx Asthma, Hx COPD, Hx Pneumonia Denies: Hx Bronchitis, Hx Respiratory Failure, Hx Sleep Apnea, Hx Tuberculosis Neurological Medical History: 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 Denies: Hx Seizures Renal/ Medical History: Reports: Hx Kidney Stones. Denies: Hx End Stage Renal Disease, Hx Peritoneal Dialysis Malignancy Medical History: Denies: Hx Lung Cancer GI Medical History: Reports: Hx Gastroesophageal Reflux Disease. Denies: Hx Crohn's Disease, Hx Hepatitis, Hx Hiatal Hernia, Hx Irritable Bowel, Hx Liver Failure, Hx Pancreatitis, Hx Ulcer Musculoskeletal Medical History: Reports Hx Arthritis - back, Reports Hx Fibromyalgia, Denies Hx Muscular Dystrophy Skin Medical History: Denies Hx Psoriasis Psychiatric Medical History: Reports: Hx Anxiety, Hx Depression Denies: Hx Bipolar Disorder, Hx Post Traumatic Stress Disorder, Hx Schizophrenia Traumatic Medical History: Denies: Hx Fractures, Hx Pneumothorax, Hx Traumatic Brain Injury Infectious Medical History: Denies: Hx Hepatitis, Hx VRE Past Surgical History: Reports: Hx Cholecystectomy, Hx Genitourinary Surgery - bladder tack, Hx Gynecologic Surgery - hysterectomy partial, Hx Hysterectomy, Hx Tonsillectomy, Hx Tubal Ligation. Denies: Hx Appendectomy, Hx Bowel Surgery, Hx Section, Hx Colostomy, Hx Coronary Artery Bypass Graft, Hx Gastric Bypass Surgery, Hx Herniorrhaphy, Hx Mastectomy, Hx Open Heart Surgery, Hx Pacemaker - Immunizations Immunizations up to date: Yes Hx Diphtheria, Pertussis, Tetanus Vaccination: No Hx Pneumococcal Vaccination: 03/22/11 Review of Systems - Review of Systems Constitutional: No symptoms reported EENT: No symptoms reported Cardiovascular: No symptoms reported Respiratory: No symptoms reported Gastrointestinal: No symptoms reported Genitourinary: No symptoms reported Female Genitourinary: No symptoms reported Musculoskeletal: See HPI, Back pain Skin: No symptoms reported Hematologic/Lymphatic: No symptoms reported Neurological/Psychological: No symptoms reported Physical Exam - Vital signs Vitals: Temp Pulse Resp BP Pulse Ox 98.2 F 92 18 146/90 H 96 02/06/20 15:53 02/06/20 15:53 02/06/20 15:53 02/06/20 15:53 02/06/20 15:53 Interpretation: Normal - General General appearance: Appears well, Alert - HEENT Head: Normocephalic, Atraumatic Eyes: Normal Pupils: PERRL - Respiratory Respiratory status: No respiratory distress Chest status: Nontender Breath sounds: Normal Chest palpation: Normal - Cardiovascular Rhythm: Regular Heart sounds: Normal auscultation Murmur: No - Abdominal Inspection: Normal Distension: No distension Bowel sounds: Normal Tenderness: Nontender Organomegaly: No organomegaly - Back Back: Normal, Tender - ttp right si and piriformis region. No midline pain.. No: Nontender - Extremities General upper extremity: Normal inspection, Nontender, Normal color, Normal ROM, Normal temperature General lower extremity: Normal inspection, Nontender, Normal color, Normal ROM, Normal temperature, Normal weight bearing. No: Josi's sign - Neurological Neuro grossly intact: Yes Cognition: Normal Orientation: AAOx4 Rosaline Coma Scale Eye Opening: Spontaneous [place] Coma Scale Verbal: Oriented [place] Coma Scale Motor: Obeys Commands Rosaline Coma Scale Total: 15 Speech: Normal Motor strength normal: LUE, RUE, LLE, RLE Sensory: Normal - Psychological Associated symptoms: Normal affect, Normal mood - Skin Skin Temperature: Warm Skin Moisture: Dry Skin Color: Normal Course - Re-evaluation Re-evalutation: 02/06/20 19:44 MDM 69 year old with right sided low back pain. Concerned she may have a tumor. No fever or chills. She has had this for weeks and worsening. No midline pain, not diabetic and no fever - seriously doubt epidural abcess or i nfectious cause. May have some degree of sciatica with this. Discussed close follow up with PCP and she expressed understanding. - Vital Signs Vital signs: Temp Pulse Resp BP Pulse Ox 98.3 F 71 18 141/55 H 95 02/06/20 19:48 02/06/20 19:48 02/06/20 19:48 02/06/20 19:48 02/06/20 19:48 - Laboratory Result Diagrams: 02/06/20 17:10 02/06/20 17:10 Laboratory results interpreted by me: 02/06/20 02/06/20 17:10 17:10 RDW 17.4 H Creatinine 0.44 L Discharge - Discharge Clinical Impression: Right-sided low back pain with sciatica Qualifiers: Chronicity: acute Sciatica laterality: sciatica of right side Qualified Co de(s): M54.41 - Lumbago with sciatica, right side Condition: Stable Disposition: HOME, SELF-CARE Instructions: Family Physicians / Practices, Low Back Pain ([facility]) Additional Instructions: Take the medicine as directed. Use ice and alternate ice and heat. Please return here for weakness, increase pain or other concerns or other problems. Forms: Smoking Cessation Education Referrals: PEBBLES ORTIZ MD [Primary Care Provider] - Follow up as needed
[2020-02-06 20:58] VITALS: BP 127/59
== END 2020-02-06 20:58 | disposition home or self-care (01) ==
LOC: ER 15:46
DX: M54.41 Lumbago with sciatica, right side (principal); R10.9 Unspecified abdominal pain; D35.01 Benign neoplasm of right adrenal gland; F17.200 Nicotine dependence, unspecified, uncomplicated; J44.9 Chronic obstructive pulmonary disease, unspecified; Z79.891 Long term (current) use of opiate analgesic; Z87.442 Personal history of urinary calculi; Z87.19 Personal history of other diseases of the digestive system; Z90.49 Acquired absence of other specified parts of digestive tract; Z90.711 Acquired absence of uterus with remaining cervical stump
CPT/HCPCS: 99285; 96372; 36415; 87086; 83690; 85025; 80053; 81001; 74176; J1885; J1170

== ENCOUNTER 2020-02-21 11:28 | Inpatient (IN) | payer MEDICARE ==
[2020-02-21] MEDS ORDERED: METHYLPREDNISOLONE INJ 125 MG/2 ML SDV IV ONE (12:28)
[2020-02-21] MEDS ORDERED: IPRATROPIUM/ALBUTEROL 0.5-2.5 MG/3 ML AMPUL NEB ONE (12:28)
--- NOTE | 2020-02-21 12:29 | ER Document Report ---
ED Medical Screen (RME) - General Stated Complaint: COUGH, CONGESTION, FEVER Time Seen by Provider: 02/21/20 12:23 Primary Care Provider: PEBBLES ORTIZ MD [Primary Care Provider] - Follow up as needed Mode of Arrival: Ambulatory Information source: Patient Notes: HPI; 69-year-old female presents to the emergency room complaining of fevers of 103 with headache, body aches, coughing, wheezing x3 days. States her and her went to [place] for they returned on Sunday developed symptoms the following day. States they had a negative rapid Covid on the 3 to 4-day test is still pending. Has been taking Tylenol and using her inhalers with minimal relief. Spouse with same symptoms. PE: Alert and oriented x3. Mild distress noted. Lungs with scattered rhonchi and w heezes. Heart: Regular rate rhythm without murmurs, rubs, gallops. I have greeted and performed a rapid initial assessment of this patient. A comprehensive ED assessment and evaluation of the patient, analysis of test results and completion of the medical decision making process will be conducted by additional ED providers. I have specifically instructed the patient or family members with the patient to immediately return to any nursing staff should anything change in the patient's condition or with their chief complaint. TRAVEL OUTSIDE OF THE [place] IN LAST 30 DAYS: No - Related Data Allergies/Adverse Reactions: No Known Allergies Allergy (Verified 02/06/20 17:30) Past Medical History - Social History Family history: None - Past Medical History Cardiac Medical History: Reports: Hx Hypercholesterolemia Denies: Hx Atrial Fibrillation, Hx Congestive Heart Failure, Hx Coronary Artery Disease, Hx Heart Attack, Hx Hypertension, Hx Peripheral Vascular Disease, Hx Pulmonary Embolism, Hx Heart Murmur Pulmonary Medical History: Reports: Hx Asthma, Hx COPD, Hx Pneumonia Denies: Hx Bronchitis, Hx Respiratory Failure, Hx Sleep Apnea, Hx Tuberculosis Neurological Medical History: 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 Denies: Hx Seizures Renal/ Medical History: Reports: Hx Kidney Stones. Denies: Hx End Stage Renal Disease, Hx Peritoneal Dialysis Malignancy Medical History: Denies: Hx Lung Cancer GI Medical History: Reports: Hx Gastroesophageal Reflux Disease. Denies: Hx Crohn's Disease, Hx Hepatitis, Hx Hiatal Hernia, Hx Irritable Bowel, Hx Liver Failure, Hx Pancreatitis, Hx Ulcer Musculoskeltal Medical History: Reports Hx Arthritis - back, Reports Hx Fibromyalgia, Denies Hx Muscular Dystrophy Skin Medical History: Denies Hx Psoriasis Psychiatric Medical History: Reports: Hx Anxiety, Hx Depression Denies: Hx Bipolar Disorder, Hx Post Traumatic Stress Disorder, Hx Schizophrenia Traumatic Medical History: Denies: Hx Fractures, Hx Pneumothorax, Hx Traumatic Brain Injury Infectious Medical History: Denies: Hx Hepatitis, Hx VRE Past Surgical History: Reports: Hx Cholecystectomy, Hx Genitourinary Surgery - bladder tack, Hx Gynecologic Surgery - hysterectomy partial, Hx Hysterectomy, Hx Tonsillectomy, Hx Tubal Ligation. Denies: Hx Appendectomy, Hx Bowel Surgery, Hx Section, Hx Colostomy, Hx Coronary Artery Bypass Graft, Hx Gastric Bypass Surgery, Hx Herniorrhaphy, Hx Mastectomy, Hx Open Heart Surgery, Hx Pacemaker - Immunizations Immunizations up to date: Yes Hx Diphtheria, Pertussis, Tetanus Vaccination: No Physical Exam - Vital signs Vitals: Temp Pulse Resp BP Pulse Ox 99.2 F 91 24 H 123/56 L 95 02/21/20 12:16 02/21/20 12:16 02/21/20 12:16 02/21/20 12:16 02/21/20 12:16 Course - Vital Signs Vital signs: Temp Pulse Resp BP Pulse Ox 99.2 F 91 24 H 123/56 L 95 02/21/20 12:16 02/21/20 12:16 02/21/20 12:16 02/21/20 12:16 02/21/20 12:16 Doctor's Discharge - Discharge Referrals: PEBBLES ORTIZ MD [Primary Care Provider] - Follow up as needed
--- NOTE | 2020-02-21 14:08 | RADIOLOGY REPORT (SQ) ---
EXAM DESCRIPTION: CHEST SINGLE VIEW IMAGES COMPLETED DATE/TIME: 02/21/2020 12:53 pm REASON FOR STUDY: cough COMPARISON: CT chest 09/22/2019. EXAM PARAMETERS: NUMBER OF VIEWS: One view. TECHNIQUE: Single frontal radiographic view of the chest acquired. RADIATION DOSE: NA LIMITATIONS: None. FINDINGS: LUNGS AND PLEURA: Mild ill-defined alveolar opacities in both lungs. No focal confluent c onsolidation. Biapical pleural and parenchymal scarring. MEDIASTINUM AND HILAR STRUCTURES: No masses. Contour normal. HEART AND VASCULAR STRUCTURES: Heart normal in size. Normal vasculature. BONES: No acute findings. HARDWARE: None in the chest. OTHER: No other significant finding. IMPRESSION: Mild ill-defined alveolar opacities which may indicate mild pulmonary edema or developin g airspace disease. TECHNICAL DOCUMENTATION: JOB ID: [id number] [email or web address]- All Rights Reserved Reading location - IP/workstation name: [email or web address]
[2020-02-21] MEDS ORDERED: ACETAMINOPHEN WITH CODEINE #3 TABLET PO ONE (14:28)
--- NOTE | 2020-02-21 14:34 | ER Document Report ---
ED Respiratory Problem - General Stated Complaint: COUGH, CONGESTION, FEVER Time Seen by Provider: 02/21/20 12:23 Primary Care Provider: PEBBLES ORTIZ MD [ACTIVE STAFF] - Follow up as needed Mode of Arrival: Ambulatory Information source: Patient Notes: Patient is a 69-year-old female comes emergency room complaining of increasing shortness of breath. Patient states that she went to [place] last week for a driving. She states they wore masks at all times. She also states that on her way home this past Sunday her and her both started with cough congestion and some mild shortness of breath. Patient states she went to a local clinic on and was tested for coronavirus and states that it was negative. Patient has a history of smoking and continues to smoke. She complains of having low-grade fever with a headache and rib pain from coughing. She denies any other medical problems such as high blood pressure diabetes or asthma. She is on medication for anxiety and sleep. She also does have a history of arthritis. TRAVEL OUTSIDE OF THE [place] IN LAST 30 DAYS: No - HPI Patient complains to provider of: Cough, Hurts to breath, Short of breath Onset: Other - 4 days ago Duration: Continuous, Worse/persistent Initiating Event: URI Quality of pain: Achy, Sharp Severity: Moderate Pain Level: 3 Context: Smoker Short of Breath: Moderate Chest pain/discomfort: Constant Cough: Nonproductive Associated symptoms: Cough, Short of breath, Wheezing Similar symptoms previously: No Recently seen / treated by doctor: No - Related Data Allergies/Adverse Reactions: No Known Allergies Allergy (Verified 02/06/20 17:30) Past Medical History - General Information source: Patient - Social History Smoking Status: Current Every Day Smoker Cigarette use (# per day): Yes - Half pack a day Chew tobacco use (# tins/day): No Smoking Education Provided: Yes Frequency of alcohol use: None Drug Abuse: None Lives with: Family Family History: Reviewed & Not Pertinent, CAD, DM, Malignancy - Past Medical History Cardiac Medical History: Reports: Hx Hypercholesterolemia Denies: Hx Atrial Fibrillation, Hx Congestive Heart Failure, Hx Coronary Artery Disease, Hx Heart Attack, Hx Hypertension, Hx Peripheral Vascular Dise ase, Hx Pulmonary Embolism, Hx Heart Murmur Pulmonary Medical History: Reports: Hx Asthma, Hx COPD, Hx Pneumonia Denies: Hx Bronchitis, Hx Respiratory Failure, Hx Sleep Apnea, Hx Tuberculosis Neurological Medical History: 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 Denies: Hx Seizures Renal/ Medical History: Reports: Hx Kidney Stones. Denies: Hx End Stage Renal Disease, Hx Peritoneal Dialysis Malignancy Medical History: Denies: Hx Lung Cancer GI Medical History: Reports: Hx Gastroesophageal Reflux Disease. Denies: Hx Crohn's Disease, Hx Hepatitis, Hx Hiatal Hernia, Hx Irritable Bowel, Hx Liver Failure, Hx Pancreatitis, Hx Ulcer Musculoskeletal Medical History: Reports Hx Arthritis - back, Reports Hx Fibromyalgia, Denies Hx Muscular Dystrophy Skin Medical History: Denies Hx Psoriasis Psychiatric Medical History: Reports: Hx Anxiety, Hx Depression Denies: Hx Bipolar Disorder, Hx Post Traumatic Stress Disorder, Hx Schizophrenia Traumatic Medical History: Denies: Hx Fractures, Hx Pneumothorax, Hx Traumatic Brain Injury Infectious Medical History: Denies: Hx Hepatitis, Hx VRE Past Surgical History: Reports: Hx Cholecystectomy, Hx Genitourinary Surgery - bladder tack, Hx Gynecologic Surgery - hysterectomy partial, Hx Hysterectomy, Hx Tonsillectomy, Hx Tubal Ligation. Denies: Hx Appendectomy, Hx Bowel Surgery, Hx Section, Hx Colostomy, Hx Coronary Artery Bypass Graft, Hx Gastric Bypass Surgery, Hx Herniorrhaphy, Hx Mastectomy, Hx Open Heart Surgery, Hx Pacemaker - Immunizations Immunizations up to date: Yes Hx Diphtheria, Pertussis, Tetanus Vaccination: No Hx Pneumococcal Vaccination: 03/22/11 Review of Systems - Review of Systems Constitutional: Fever, Weakness EENT: See HPI, Nose congestion Cardiovascular: See HPI, Chest pain Respiratory: See HPI, Cough, Hurts to breathe, Wheezing Gastrointestinal: No symptoms reported Genitourinary: No symptoms reported Female Genitourinary: No symptoms reported Musculoskeletal: No symptoms reported Skin: No symptoms reported Hematologic/Lymphatic: No symptoms reported Neurological/Psychological: No symptoms reported -: Yes All other systems reviewed and negative Physical Exam - Vital signs Vitals: Temp Pulse Resp BP Pulse Ox 99.2 F 91 24 H 123/56 L 95 02/21/20 12:16 02/21/20 12:16 02/21/20 12:16 02/21/20 12:16 02/21/20 12:16 Interpretation: Tachypneic - Notes Notes: PHYSICAL EXAMINATION: GENERAL: Patient is a well-nourished well-developed 69-year-old female no apparent distress on examination this afternoon. She does appear somewhat ill appearing. HEAD: Atraumatic, normocephalic. EYES: Pupils equal round and reactive to light, extraocular movements intact, conjunctiva are normal. ENT: Examination head and upper airway show nasal mucosa be mildly erythematous and edematous with some bilateral nasal congestion noted. No frontal or maxillary sinus tenderness to palpation. Posterior pharynx appears to have minimal erythema no exudates uvula is midline minimal erythema no exudate airway is patent. NECK: Normal range of motion, supple without lymphadenopathy LUNGS: Auscultation patient's lungs show bilateral breath sounds with breath sounds decreased throughout patient displays inspiratory and expiratory wheeze with some coarse rhonchi scattered in all lung moore. HEART: Regular rate and rhythm without murmurs Musculoskeletal: Normal range of motion, no pitting or edema. No cyanosis. NEUROLOGICAL: . Normal speech, normal gait. Normal sensory, motor exams PSYCH: Normal mood, normal affect. SKIN: Warm, Dry, normal turgor, no rashes or lesions noted. Course - Re-evaluation Re-evalutation: 02/21/20 16:42 Patient sitting still in her room runs a saturation of about 96%. After giving her breathing treatments and Solu-Medrol we waited approximately an hour and ambulated her again. This time patient's sats dropped down to 89 to 90% while ambulation. She gets very short of breath and gets into coughing fits. I discussed the case with Dr. Merrill she agrees with admission. I talked to Dr. Hoover and he is excepting patient on admission. - Vital Signs Vital signs: Temp Pulse Resp BP Pulse Ox 99.2 F 88 20 131/74 H 96 02/21/20 16:05 02/21/20 16:05 02/21/20 16:05 02/21/20 16:05 02/21/20 16:05 - Laboratory Result Diagrams: 02/21/20 15:05 02/21/20 15:05 Laboratory results interpreted by me: 02/21/20 02/21/20 15:05 15:05 RDW 18.1 H Lymph % (Auto) 11.0 L Seg Neutrophils % 80.6 H BUN 4 L Creatinine 0.44 L Alkaline Phosphatase 144 H Discharge - Discharge Clinical Impression: Hypoxemia, Person under investigation for severe acute respiratory syndrome coronavirus 2 (SARS-CoV-2) infection, COPD exacerbation Condition: Stable Disposition: ADMITTED INPATIENT Admitting Provider: Sneha (Hospitalist) Unit Admitted: Medical Floor Referrals: PEBBLES ORTIZ MD [ACTIVE STAFF] - Follow up as needed
[2020-02-21 15:30] LABS: ABSOLUTE EOSINOPHILS # (AUTO) 0.1 10^3/uL (0.0-0.6); ABSOLUTE LYMPHOCYTES (AUTO) 0.9 10^3/uL (0.5-4.7); ABSOLUTE MONOCYTES (AUTO) 0.6 10^3/uL (0.1-1.4); ABSOLUTE NEUT (AUTO) 6.7 10^3/uL (1.7-8.2); BASOPHILS % (AUTO) 0.3 % (0-2); EOSINOPHILS % (AUTO) 1.3 % (0-6); HEMOGLOBIN 12.3 g/dL (12.0-15.5); MEAN CORPUSCULAR HEMOGLOBIN 29.8 pg (27.0-33.4); MEAN CORPUSCULAR HGB CONC 33.2 g/dL (32.0-36.0); MEAN CORPUSCULAR VOLUME 90 fl (80-97); MONOCYTES % (AUTO) 6.8 % (3-13); PLATELET COUNT 330 10^3/uL (150-450); RED BLOOD COUNT 4.13 10^6/uL (3.72-5.28); RED CELL DISTRIBUTION WIDTH 18.1 % (11.5-14.0); SEGMENTED NEUTROPHILS % (AUTO) 80.6 % (42-78); TOTAL CELLS COUNTED % (AUTO) 100 %; WHITE BLOOD COUNT 8.3 10^3/uL (4.0-10.5)
[2020-02-21 15:46] LABS: ALBUMIN 4.4 g/dL (3.5-5.0); ALKALINE PHOSPHATASE 144 U/L (38-126); ANION GAP 12 (5-19); ASPARTATE AMINO TRANSFERASE 24 U/L (14-36); BILIRUBIN,DIRECT 0.2 mg/dL (0.0-0.4); BILIRUBIN,TOTAL 0.4 mg/dL (0.2-1.3); BLOOD UREA NITROGEN 4 mg/dL (7-20); CALCIUM 10.1 mg/dL (8.4-10.2); CARBON DIOXIDE 23 mmol/L (22-30); CHLORIDE 107 mmol/L (98-107); GLUCOSE 90 mg/dL (75-110); POTASSIUM 4.3 mmol/L (3.6-5.0)
[2020-02-21 16:28] LABS: A TYPE INFLUENZA AG NEGATIVE (NEGATIVE); B INFLUENZA AG NEGATIVE (NEGATIVE)
[2020-02-21] MEDS ORDERED: TEMAZEPAM 15 MG CAPSULE PO PRN (18:09)
[2020-02-21] MEDS ORDERED: ACETAMINOPHEN 325 MG TABLET PO PRN (18:09)
[2020-02-21] MEDS ORDERED: MAG HYDROX/AL HYDROX/SIMETH SUSP 30 ML UDCUP PO PRN (18:09)
[2020-02-21] MEDS ORDERED: PROMETHAZINE HCL INJ 25 MG/1 ML VIAL IV PRN (18:09)
[2020-02-21] MEDS ORDERED: MAGNESIUM HYDROXIDE SUSP 30 ML UDCUP PO PRN (18:09)
[2020-02-21] MEDS ORDERED: ALBUTEROL SULFATE HFA (90 MCG/PUFF) 8 GM MDI IH PRN (18:32)
[2020-02-21 18:43] LABS: C-REACTIVE PROTEIN 89.8 mg/L (<10.0)
[2020-02-21] MEDS ORDERED: CEFTRIAXONE 1 GM/D5W RTU 1 GM/50 ML RTUPB IV ONE (19:00)
[2020-02-21] MEDS ORDERED: AZITHROMYCIN 250 MG TABLET PO ONE (19:00)
--- NOTE | 2020-02-21 19:02 | PDOC H&P ---
History of Present Illness Admission Date/PCP: 02/21/20 17:17 Patient complains of: Cough, fever and shortness of breath History of Present Illness: LINNETTE MCQUEEN is a 69 year old female who reports a past medical history of nicotine dependence by cigarettes. She also suffers from anxiety with depression, gastroesophageal reflux disease and chronic neck pain. She traveled to [place] for her [id number] . The states that while they were there many people were not wearing masks. They came home this weekend and on Sunday she began to have a sore throat. By Sunday she was coughing. Over the course of several days she began to feel worse. Her appetite has been poor for the last several days. She began to have some nausea. The coughing has caused some subcostal rib pain. She states she has been coughing up whitish sputum with a little green tinge. Yesterday she began to have a fever and the shakes. Today she was short of breath with minimal exertion and experienced higher temperatures with fever greater than 103 F. Additionally her has had a sore throat and cough as well. They both presented to the emergency department for evaluation. Earlier this week they did in fact go to a clinic because they were feeling sick. They did have Covid testing that was negative. The then told me that her test was very close to being positive. They were initially resisting admission however both the emergency department provider and I explained that regardless of whether it is Covid or not she does have bilateral pneumonia and is not going to do well going home. She would be inappropriate to treat with oral antibiotics and discharge. Her white count is only 8.3 with normal hemoglobin and platelet count. Serum chemistries are normal with the exception of slightly elevated alkaline phosphatase. Ferritin, D-dimer, LDH and CRP are pending. In addition blood cultures are being drawn and I will start the patient on ceftriaxone and azithromycin along with dexamethasone, zinc, vitamin C and vitamin D. Past Medical History Cardiac Medical History: Reports: Hyperlipidema Denies: Atrial Fibrillation, Congestive Heart Failure, Coronary Artery Disease, Myocardial Infarction, Hypertension, Peripheral Vascular Disease, Pulmonary Embolism, Heart Murmur Pulmonary Medical History: Reports: Asthma, Chronic Obstructive Pulmonary Disease (COPD) - Patient reports work-up by the "specialist "did not reveal COPD, Pneumonia Denies: Bronchitis, Respiratory Failure, Sleep Apnea, Tuberculosis EENT Medical History: Reports: Nose - Rhinitis Neurological Medical History: Reports: Migraine Denies: Seizures Endocrine Medical History: Denies: Diabetes Mellitus Type 2 Renal/ Medical History: Denies: Chronic Kidney Disease, End Stage Renal Disease Malignancy Medical History: Denies: Lung Cancer GI Medical History: Reports: Gastroesophageal Reflux Disease Denies: Crohn's Disease, Hepatitis, Hiatal Hernia Musculoskeltal Medical History: Reports: Arthritis - back, Fibromyalgia Skin Medical History: Denies: Psoriasis Psychiatric Medical History: Reports: Depression, General Anxiety Disorder Denies: Bipolar Disorder, Post Traumatic Stress Disorder Traumatic Medical History: Denies: Pneumothorax, Traumatic Brain Injury Hematology: Denies: Anemia, Sickle Cell Disease Infectious Medical History: Denies: Vancomycin-Resistant Enterococci Past Surgical History Past Surgical History: Reports: Cholecystectomy, Hysterectomy, Tonsillectomy, Tubal Ligation Denies: Amputation, Appendectomy, Section, Colostomy, Coronary Artery Bypass Graft, Gastric Bypass Surgery, Herniorrhaphy, Mastectomy, Pacemaker Social History Information Source: Patient, Relative - Lives with: Family Smoking Status: Current Every Day Smoker Cigarettes Packs Per Day: 0.5 Electronic Cigarette use?: No Frequency of Alcohol Use: None Hx Recreational Drug Use: No Drugs: None Hx Prescription Drug Abuse: No - Advance Directive Resuscitation Status: Full Code Surrogate healthcare decision maker:: The patient's would be the alternate decision-maker. She in fact was somewhat unsure about her choice. She would like to talk to her . I left the CODE STATUS is full code for today and I will continue to discuss tomorrow. Family History Family History: CAD, DM, Malignancy Parental Family History Reviewed: Yes Children Family History Reviewed: Yes Sibling(s) Family History Reviewed.: Yes Medication/Allergy Home Medications: Quetiapine Fumarate [Seroquel 100 mg Tablet] 200 mg PO QHS 06/20/14 Diazepam [Valium 5 mg Tablet] 10 mg PO BIDP PRN 04/13/15 Fluoxetine HCl [Prozac] 80 mg PO DAILY 06/22/17 Gabapentin 400 mg PO Q8 06/22/17 Sucralfate [Carafate 1 gm Tablet] 1 gm PO ACHS 06/22/17 Albuterol Sulfate [Ventolin HFA MDI 18 GM] 2 puff IH Q6HP PRN 08/26/17 Buspirone HCl [Buspar 15 mg Tablet] 15 mg PO Q8 08/26/17 Butalb/Acetaminophen/Caffeine [Fioricet 50-300-40 mg Capsule] 1 cap PO Q4HP PRN 08/26/17 Donepezil HCl [Aricept] 10 mg PO DAILY 08/26/17 Fluticasone Propionate [Flonase Nasal [place] 50 Mcg/[place] 16 gm] 2 sprays NAREB DAILY 08/26/17 Fluticasone/Salmeterol [Advair 250-50 Diskus 28 dose] 1 inh IH Q12 08/26/17 Meloxicam [Mobic] 15 mg PO DAILY 08/26/17 Montelukast Sodium [Singulair 10 mg Tablet] 10 mg PO QHS 08/26/17 Rosuvastatin Calcium [Crestor 10 mg Tablet] 10 mg PO QHS 08/26/17 Amox Tr/Potassium Clavulanate [Augmentin "500" Tablet] 1 tab PO Q8 7 Days #21 tablet 09/05/17 Ipratropium/Albuterol Sulfate [Duoneb 3 ml Ampul] 3 ml NEB RTQ6 #10 vial.neb 09/05/17 Loratadine [Claritin 10 mg Tablet] 10 mg PO QHS #21 tablet 09/05/17 Tiotropium [place] [Spiriva] 2 puff IH DAILY #30 cap.w.dev 09/05/17 Cephalexin Monohydrate [Keflex 500 mg Capsule] 500 mg PO BID #14 capsule 03/05/18 Hydrocodone/Acetaminophen [Harwood 5-325 mg Tablet] 1 - 2 tab PO ASDIR #8 tablet 03/05/18 Ondansetron [Zofran Odt 4 mg Tablet] 1 - 2 tab PO Q4H PRN #15 tab.rapdis 03/05/18 Cephalexin Monohydrate [Keflex 500 mg Capsule] 500 mg PO BID 7 Days #14 capsule 05/19/18 Phenazopyridine HCl [Pyridium 200 mg Tablet] 200 mg PO TID #15 tablet 05/19/18 Nitrofurantoin Macrocrystal [Macrodantin] 100 mg PO BID #14 capsule 05/23/18 Albuterol Sulfate [Albuterol Sulfate 5mg/1 mL] 5 mg NEB Q4 PRN #30 ml 06/15/18 Doxycycline Monohydrate 100 mg PO BID #20 capsule 06/15/18 Prednisone [Deltasone 20 mg Tablet] 2 tab PO DAILY 5 Days tablet 06/15/18 Albuterol Sulfate [Proventil 0.5% Neb 2.5 mg/0.5 ml Vial.neb] 2.5 mg NEB Q6H #30 vial.neb 06/20/18 Nystatin/Dexameth/Diphen [Magic Mouthwash (Omh Formula) Susp] 5 ml PO QID #120 ml 12/31/19 Methylprednisolone [Medrol Dosepack (4 mg/Tab) 21 Tab/Dosepak] 4 mg PO ASDIR PRN #21 tab.ds.pk 01/19/20 Tizanidine HCl [Zanaflex] 2 mg PO BID #14 capsule 01/19/20 Cyclobenzaprine HCl [Flexeril 10 mg Tablet] 10 mg PO TIDP PRN #15 tab 02/06/20 Ibuprofen [Motrin 600 mg Tablet] 600 mg PO TID #30 tablet 02/06/20 Allergies/Adverse Reactions: No Known Allergies Allergy (Verified 02/06/20 17:30) Review of Systems All systems: reviewed and no additional remarkable complaints except as stated Constitutional: PRESENT: chills, fever(s), other - Rigors Nose, Mouth, and Throat: PRESENT: sore throat Cardiovascular: PRESENT: chest pain, other - Subcostal with coughing Respiratory: PRESENT: cough, dyspnea, sputum Gastrointestinal: PRESENT: nausea Musculoskeletal: PRESENT: other - Neck pain Integumentary: PRESENT: diaphoresis Psychiatric: PRESENT: anxiety, depression Physical Exam Vital Signs: Temp Pulse Resp BP Pulse Ox 99.2 F 88 20 131/74 H 96 02/21/20 16:05 02/21/20 16:05 02/21/20 16:05 02/21/20 16:05 02/21/20 16:05 Intake & Output 02/20/20 02/21/20 02/22/20 06:59 06:59 06:59 Weight 75.6 kg General appearance: PRESENT: cooperative, well-developed, well-nourished, other - Well-developed 69-year-old female in moderate distress. ABSENT: disheveled Head exam: PRESENT: atraumatic, normocephalic Eye exam: PRESENT: conjunctival injection, conjunctiva pink, EOMI, PERRLA. ABSENT: scleral icterus Ear exam: PRESENT: normal external ear exam. ABSENT: bleeding, drainage Mouth exam: PRESENT: dry mucosa, tongue midline Teeth exam: ABSENT: poor dentation Throat exam: PRESENT: post pharyngeal erythema Neck exam: ABSENT: carotid bruit, JVD, lymphadenopathy, thyromegaly, tracheostomy Respiratory exam: PRESENT: prolonged expiratory phas, rhonchi - Bilaterally, symmetrical, tachypnea, wheezes - Sporadic expiratory wheeze. ABSENT: accessory muscle use, rales, stridor Cardiovascular exam: PRESENT: RRR, +S1, +S2. ABSENT: bradycardia, diastolic murmur, irregular rhythm, systolic murmur, tachycardia GI/Abdominal exam: PRESENT: normal bowel sounds, soft. ABSENT: distended, guarding, tenderness Rectal exam: PRESENT: deferred Gentrourinary exam: ABSENT: indwelling catheter Extremities exam: ABSENT: joint swelling, pedal edema Musculoskeletal exam: PRESENT: ambulatory, full ROM, normal inspection. ABSENT: deformity, dislocation, tenderness Neurological exam: PRESENT: alert, awake, oriented to person, oriented to place, oriented to time, oriented to situation, CN II-XII grossly intact. ABSENT: altered, motor sensory deficit Psychiatric exam: PRESENT: appropriate affect - Affect reflects her current illness. ABSENT: agitated, anxious, unusual affect Focused psych exam: ABSENT: delusional, paranoid, restlessness Skin exam: PRESENT: warm, other - Clammy Results Laboratory Results: 02/21/20 15:05 02/21/20 15:05 02/21/20 02/21/20 15:05 15:05 WBC 8.3 RBC 4.13 Hgb 12.3 Hct 37.0 MCV 90 MCH 29.8 MCHC 33.2 RDW 18.1 H Plt Count 330 Seg Neutrophils % 80.6 H Sodium 141.9 Potassium 4.3 Chloride 107 Carbon Dioxide 23 Anion Gap 12 BUN 4 L Creatinine 0.44 L Est GFR ( Amer) > 60 Glucose 90 Calcium 10.1 Magnesium 2.3 Total Bilirubin 0.4 AST 24 Alkaline Phosphatase 144 H Total Protein 8.0 Albumin 4.4 02/21/20 15:05 Troponin I < 0.012 Impressions: Chest X-Ray 02/21/20 12:27 IMPRESSION: Mild ill-defined alveolar opacities which may indicate mild pulmonary edema or developing airspace disease. Assessment and Plan - Diagnosis (1) Bilateral pneumonia Qualifiers: Pneumonia type: due to unspecified organism Lung location: lower lobe of lung Qualified Code(s): J18.9 - Pneumonia, unspecified organism Is this a current diagnosis for this admission?: Yes (2) Person under investigation for severe acute respiratory syndrome coronavirus 2 (SARS-CoV-2) infection Is this a current diagnosis for this admission?: Yes (3) Acute on chronic respiratory failure with hypoxemia Is this a current diagnosis for this admission?: Yes (4) Cough Is this a current diagnosis for this admission?: Yes (5) Anxiety and depression Is this a current diagnosis for this admission?: Yes (6) COPD with acute exacerbation Is this a current diagnosis for this admission?: Yes (7) Neck pain, chronic Is this a current diagnosis for this admission?: Yes (8) Cigarette nicotine dependence Qualifiers: Substance use status: uncomplicated Qualified Code(s): F17.210 - Nicotine dependence, cigarettes, uncomplicated Is this a current diagnosis for this admission?: Yes - Plan Summary Summary: (1) Bilateral pneumonia Qualifiers: Pneumonia type: due to unspecified organism Lung location: lower lobe of lung Qualified Code(s): J18.9 - Pneumonia, unspecified organism Is this a current diagnosis for this admission?: Yes (2) Person under investigation for severe acute respiratory syndrome coronavirus 2 (SARS-CoV-2) infection Is this a current diagnosis for this admission?: Yes (3) Acute on chronic respiratory failure with hypoxemia Is this a current diagnosis for this admission?: Yes (4) Cough Is this a current diagnosis for this admission?: Yes (5) Anxiety and depression Is this a current diagnosis for this admission?: Yes (6) COPD with acute exacerbation Is this a current diagnosis for this admission?: Yes (7) Neck pain, chronic Is this a current diagnosis for this admission?: Yes (8) Cigarette nicotine dependence Qualifiers: Substance use status: uncomplicated Qualified Code(s): F17.210 - Nicotine dependence, cigarettes, uncomplicated Is this a current diagnosis for this admission?: Yes 02/21/2020 Possible Covid pneumonia bilateral-ceftriaxone, azithromycin as well as guaifenesin, vitamin C, vitamin D, melatonin and IV Decadron. In addition inhaler therapy has been ordered. Acetaminophen is available for fever and the patient will be receiving IV fluids as well. Await Covid test results. Respiratory failure with hypoxemia-at rest the patient has adequate saturation but with minimal exertion she drops to below 90%. Will supplement oxygen to keep saturation greater than 90% if needed. Chronic obstructive pulmonary disease-despite the patient's report of specialist investigation without a COPD diagnosis her hyperinflated lungs with flattened diaphragms suggest otherwise. We will use a dual medication inhaler with as needed albuterol. She has inhalers and a nebulizer machine at home as well. We will try and avoid nebulizer treatments until Covid status is known. Anxiety and depression-the patient takes Seroquel at night to sleep. She takes another antidepressant medication in the morning. She was on Prozac but thinks it has changed. Await pharmacy's medication reconciliation for current list. Valium will be available if needed as well. Chronic neck pain-it appears that she uses Harwood and Flexeril. Percocet and Flexeril currently ordered. Nicotine dependence-the patient smokes half pack of cigarettes every day. She requested a nicotine patch scheduled and not as needed. - Time Time Spent with patient: 35 or more minutes Smoking Cessation Education: 3 to 10 minutes Medications reviewed and adjusted accordingly: Yes Anticipated Discharge Disposition: Home, Self Care Anticipated Discharge Timeframe: Hopefully only 4 to 5 days - Inpatient Certification Based on my medical assessment, after consideration of the patient's comorb idities, presenting symptoms, or acuity I expect that the services needed warrant INPATIENT care.: Yes I certify that my determination is in accordance with my understanding of Medicare's requirements for reasonable and necessary INPATIENT services [42 CFR 412.3e].: Yes Medical Necessity: Need Close Monitoring Due to Risk of Patient Decompensation, Need For IV Fluids, Need for Pain Control, Need for IV Antibiotics Post Hospital Care: D/C or Transfer Summary
--- NOTE | 2020-02-21 19:13 | ADVANCED CARE ---
- Diagnosis (1) Bilateral pneumonia Diagnosis Current: Yes (2) Person under investigation for severe acute respiratory syndrome coronavirus 2 (SARS-CoV-2) infection Diagnosis Current: Yes (3) Acute on chronic respiratory failure with hypoxemia Diagnosis Current: Yes (4) Cough Diagnosis Current: Yes (5) Anxiety and depression Diagnosis Current: Yes (6) COPD with acute exacerbation Diagnosis Current: Yes (7) Neck pain, chronic Diagnosis Current: Yes (8) Cigarette nicotine dependence Diagnosis Current: Yes Attendance: Held at the bedside with the patient Resuscitation Status: Full Code Discussion: During our discussion of CODE STATUS the patient appeared slightly upset. She feels that she does not want to be intubated however she could not make up her mind with regard to cardiac resuscitation. She wanted to talk to her . Unfortunately at this time he was being examined by another emergency department physician. Looking back at her records at one point it appeared that she did carry a DNR status. I explained that she could make changes to her status at any time. I will revisit it tomorrow. I will try and include both the and the patient in that discussion so that all questions can be answered and further education can occur. Care Planning Goals: Establish a good knowledge foundation for CODE STATUS decisions and then obtain a more informed decision during this hospitalization. Document(s) Completed: None Time Spent: 25 minutes
[2020-02-21 19:14] LABS: FERRITIN 27.6 ng/mL (11.1-264.0)
[2020-02-21] MEDS: MORPHINE SULFATE 10 MG/ML INJ IV PRN (19:54)
[2020-02-21] MEDS: QUETIAPINE FUMARATE 100 MG TABLET PO SCH (21:59)
[2020-02-21] MEDS: GUAIFENESIN 600 MG TABLET.SA PO SCH (21:59)
[2020-02-22] MEDS: RINGERS SOLUTION,LACTATED 1,000 ML IV PRN ×2 (00:30→17:50)
[2020-02-22] MEDS: DIAZEPAM 5 MG TABLET PO PRN (03:45)
[2020-02-22] MEDS: MORPHINE SULFATE 10 MG/ML INJ IV PRN ×6 (03:45→20:51)
[2020-02-22] MEDS: CYCLOBENZAPRINE HCL 10 MG TABLET PO PRN ×2 (05:11→20:47)
[2020-02-22] MEDS ORDERED: PANTOPRAZOLE SODIUM 20 MG TABLET.DR PO SCH (06:00)
[2020-02-22] MEDS: MELOXICAM 7.5 MG TABLET PO SCH ×2 (08:12→17:11)
--- NOTE | 2020-02-22 09:03 | EKG REPORT ---
SEVERITY:- OTHERWISE NORMAL ECG - SINUS RHYTHM LEFT AXIS DEVIATION : Confirmed by: Michael Galaviz 22-Feb-2020 09:02:35
[2020-02-22] MEDS: ENOXAPARIN SODIUM INJ 40 MG/0.4 ML DISP.SYRIN SUBCUT SCH (09:26)
[2020-02-22] MEDS: ZINC SULFATE 220 MG CAPSULE PO SCH (09:26)
[2020-02-22] MEDS: CHOLECALCIFEROL (D3) 1,000 UNIT (25 MCG) TABLET PO SCH (09:26)
[2020-02-22] MEDS: DOCUSATE SODIUM 100 MG CAPSULE PO SCH (09:26)
[2020-02-22] MEDS: ASCORBIC ACID 500 MG TABLET PO SCH ×2 (09:26→17:11)
[2020-02-22] MEDS: GUAIFENESIN 600 MG TABLET.SA PO SCH ×2 (09:26→21:44)
[2020-02-22] MEDS: DEXAMETHASONE SOD PHOS INJ 10 MG/1 ML VIAL IV SCH (09:27)
[2020-02-22] MEDS: NICOTINE 14 MG/24 HR PATCH.TD24 TD SCH (09:27)
[2020-02-22] MEDS: AZITHROMYCIN 250 MG TABLET PO SCH (09:43)
--- NOTE | 2020-02-22 10:16 | PDOC PROGRESS REPORT ---
Subjective Date:: 02/22/20 Subjective:: Patient is still anxious this morning. She is on nasal cannula. I spoke to the nurse and the patient was able to walk to the bathroom and back on her room. She did get somewhat short of breath but not to any extreme. Reason For Visit: HYPOXEMIA, PERSON UNDER INVESTIGATION FOR SEVERE A Physical Exam Vital Signs: Temp Pulse Resp BP Pulse Ox 98.4 F 85 19 133/60 H 91 L 02/22/20 03:50 02/22/20 07:00 02/22/20 03:50 02/22/20 03:50 02/22/20 03:50 Intake & Output 02/21/20 02/22/20 02/23/20 06:59 06:59 06:59 Intake Total 310 Balance 310 Weight 76.5 kg General appearance: PRESENT: cooperative, mild distress, well-developed. ABSENT: disheveled Head exam: PRESENT: atraumatic, normocephalic Eye exam: PRESENT: conjunctiva pink. ABSENT: scleral icterus Ear exam: PRESENT: normal external ear exam. ABSENT: bleeding, drainage Mouth exam: PRESENT: moist, tongue midline Neck exam: ABSENT: carotid bruit, JVD, lymphadenopathy Respiratory exam: PRESENT: prolonged expiratory phas, rhonchi - Bilaterally, symmetrical, tachypnea, wheezes - Sporadic expiratory wheezes bilaterally. ABSENT: accessory muscle use Cardiovascular exam: PRESENT: RRR, +S1, +S2 GI/Abdominal exam: PRESENT: normal bowel sounds, soft. ABSENT: distended, guarding, tenderness Rectal exam: PRESENT: deferred Gentrourinary exam: ABSENT: indwelling catheter Extremities exam: PRESENT: full ROM. ABSENT: calf tenderness, clubbing, pedal edema Musculoskeletal exam: PRESENT: ambulatory, normal inspection. ABSENT: deformity, dislocation Neurological exam: PRESENT: alert, awake, oriented to person, oriented to place, oriented to time, oriented to situation, CN II-XII grossly intact. ABSENT: altered Psychiatric exam: PRESENT: anxious. ABSENT: agitated Focused psych exam: ABSENT: delusional, paranoid, restlessness Skin exam: PRESENT: dry, normal color, warm. ABSENT: rash Results Laboratory Results: 02/21/20 15:05 02/21/20 15:05 02/21/20 02/21/20 02/21/20 15:05 15:05 15:05 WBC 8.3 RBC 4.13 Hgb 12.3 Hct 37.0 MCV 90 MCH 29.8 MCHC 33.2 RDW 18.1 H Plt Count 330 Seg Neutrophils % 80.6 H Sodium 141.9 Potassium 4.3 Chloride 107 Carbon Dioxide 23 Anion Gap 12 BUN 4 L Creatinine 0.44 L Est GFR ( Amer) > 60 Glucose 90 Calcium 10.1 Magnesium 2.3 Ferritin 27.60 Total Bilirubin 0.4 AST 24 Alkaline Phosphatase 144 H C-Reactive Protein 89.8 H Total Protein 8.0 Albumin 4.4 02/21/20 15:05 Troponin I < 0.012 Impressions: Chest X-Ray 02/21/20 12:27 IMPRESSION: Mild ill-defined alveolar opacities which may indicate mild pulmonary edema or developing airspace disease. Assessment and Plan - Diagnosis (1) Bilateral pneumonia Qualifiers: Pneumonia type: due to unspecified organism Lung location: lower lobe of lung Qualified Code(s): J18.9 - Pneumonia, unspecified organism Is this a current diagnosis for this admission?: Yes (2) Person under investigation for severe acute respiratory syndrome coronavirus 2 (SARS-CoV-2) infection Is this a current diagnosis for this admission?: Yes (3) Acute on chronic respiratory failure with hypoxemia Is this a current diagnosis for this admission?: Yes (4) Cough Is this a current diagnosis for this admission?: Yes (5) Anxiety and depression Is this a current diagnosis for this admission?: Yes (6) COPD with acute exacerbation Is this a current diagnosis for this admission?: Yes (7) Neck pain, chronic Is this a current diagnosis for this admission?: Yes (8) Cigarette nicotine dependence Qualifiers: Substance use status: uncomplicated Qualified Code(s): F17.210 - Nicotine dependence, cigarettes, uncomplicated Is this a current diagnosis for this admission?: Yes - Plan Summary Summary: (1) Bilateral pneumonia Qualifiers: Pneumonia type: due to unspecified organism Lung location: lower lobe of lung Qualified Code(s): J18.9 - Pneumonia, unspecified organism Is this a current diagnosis for this admission?: Yes (2) Person under investigation for severe acute respiratory syndrome coronavirus 2 (SARS-CoV-2) infection Is this a current diagnosis for this admission?: Yes (3) Acute on chronic respiratory failure with hypoxemia Is this a current diagnosis for this admission?: Yes (4) Cough Is this a current diagnosis for this admission?: Yes (5) Anxiety and depression Is this a current diagnosis for this admission?: Yes (6) COPD with acute exacerbation Is this a current diagnosis for this admission?: Yes (7) Neck pain, chronic Is this a current diagnosis for this admission?: Yes (8) Cigarette nicotine dependence Qualifiers: Substance use status: uncomplicated Qualified Code(s): F17.210 - Nicotine dependence, cigarettes, uncomplicated Is this a current diagnosis for this admission?: Yes 02/21/2020 Possible Covid pneumonia bilateral-ceftriaxone, azithromycin as well as gu aifenesin, vitamin C, vitamin D, melatonin and IV Decadron. In addition inhaler therapy has been ordered. Acetaminophen is available for fever and the patient will be receiving IV fluids as well. Await Covid test results. Respiratory failure with hypoxemia-at rest the patient has adequate saturation but with minimal exertion she drops to below 90%. Will supplement oxygen to keep saturation greater than 90% if needed. Chronic obstructive pulmonary disease-despite the patient's report of specialist investigation without a COPD diagnosis her hyperinflated lungs with flattened diaphragms suggest otherwise. We will use a dual medication inhaler with as needed albuterol. She has inhalers and a nebulizer machine at home as well. We will try and avoid nebulizer treatments until Covid status is known. Anxiety and depression-the patient takes Seroquel at night to sleep. She takes another antidepressant medication in the morning. She was on Prozac but thinks it has changed. Await pharmacy's medication reconciliation for current list. Valium will be available if needed as well. Chronic neck pain-it appears that she uses [place] and Flexeril. Percocet and Flexeril have been ordered. Nicotine dependence-the patient smokes half pack of cigarettes every day. She requested a nicotine patch scheduled and not as needed. 02/22/2020 Uxhapyway-B-[id number] was minimally elevated and CRP is elevated. Ferritin and LDH are normal. This could end up being just a bed bilateral pneumonia. I did increase the ceftriaxone to 2 g daily. Respiratory failure with hypoxemia-continue oxygen supplementation. Breo initiated. I have added montelukast. Continue IV Decadron. Albuterol inhalers also available. COPD-it is my opinion that the patient does have underlying COPD. There is evidence of Spiriva and Advair on previous prescriptions. We will further address at discharge. Anxiety and depression-I did speak to pharmacy. The pharmacy student is trying very hard to complete the medication reconciliation. She is making additional calls as there are lots of prescriptions that have not been filled for a while and the patient herself is not particularly helpful. I believe she is going to call the who likely has a better idea of what the patient is actually taking. Right now she is on the Seroquel and Valium. I have resumed BuSpar and Wellbutrin as we believe these are her current medications. If there is any feedback from the pharmacy student I will adjust medications accordingly. Chronic neck pain-currently with Flexeril and Percocet. - Time Time Spent with patient: 15-24 minutes Medications reviewed and adjusted accordingly: Yes Anticipated Discharge Disposition: Home with Home Health Anticipated Discharge Timeframe: Unknown
[2020-02-22] MEDS: FLUTICASONE/VILANTEROL 100-25 MCG/DOSE IH SCH (10:35)
[2020-02-22] MEDS: OXYCODONE-ACETAMINOPHEN 5-325 MG TABLET PO PRN (10:51)
[2020-02-22] MEDS: CEFTRIAXONE 2 GM/D5W RTU 2 GM/50 ML RTUPB IV SCH (10:57)
[2020-02-22 10:59] LABS: HEMATOCRIT 34.4 % (36.0-47.0); HEMOGLOBIN 11.6 g/dL (12.0-15.5); MEAN CORPUSCULAR HEMOGLOBIN 29.9 pg (27.0-33.4); MEAN CORPUSCULAR HGB CONC 33.6 g/dL (32.0-36.0); MEAN CORPUSCULAR VOLUME 89 fl (80-97); PLATELET COUNT 330 10^3/uL (150-450); RED BLOOD COUNT 3.86 10^6/uL (3.72-5.28); RED CELL DISTRIBUTION WIDTH 17.8 % (11.5-14.0); WHITE BLOOD COUNT 7.3 10^3/uL (4.0-10.5)
[2020-02-22 11:12] LABS: ANION GAP 12 (5-19); BLOOD UREA NITROGEN 8 mg/dL (7-20); CALCIUM 9.7 mg/dL (8.4-10.2); CARBON DIOXIDE 22 mmol/L (22-30); CHLORIDE 105 mmol/L (98-107); GLUCOSE 115 mg/dL (75-110); POTASSIUM 3.9 mmol/L (3.6-5.0)
[2020-02-22] MEDS: CALCIUM CARBONATE 500 MG TAB.CHEW PO PRN ×2 (16:16→20:47)
[2020-02-22] MEDS ORDERED: CEFTRIAXONE 1 GM/D5W RTU 1 GM/50 ML RTUPB IV SCH (18:00)
[2020-02-22] MEDS: QUETIAPINE FUMARATE 100 MG TABLET PO SCH (21:44)
[2020-02-22] MEDS: MONTELUKAST SODIUM 10 MG TABLET PO SCH (21:44)
[2020-02-22] MEDS: BUSPIRONE HCL 10 MG TABLET PO SCH (21:44)
[2020-02-22] MEDS: BUPROPION HCL 75 MG TABLET PO SCH (21:45)
[2020-02-23] MEDS: MORPHINE SULFATE 10 MG/ML INJ IV PRN ×4 (00:40→16:09)
[2020-02-23] MEDS: RINGERS SOLUTION,LACTATED 1,000 ML IV PRN (01:50)
[2020-02-23] MEDS: DIAZEPAM 5 MG TABLET PO PRN (04:50)
[2020-02-23] MEDS: PANTOPRAZOLE SODIUM 40 MG TABLET.DR PO SCH (06:50)
[2020-02-23 07:43] LABS: ABSOLUTE EOSINOPHILS # (AUTO) 0.1 10^3/uL (0.0-0.6); ABSOLUTE LYMPHOCYTES (AUTO) 2.1 10^3/uL (0.5-4.7); ABSOLUTE MONOCYTES (AUTO) 0.5 10^3/uL (0.1-1.4); ABSOLUTE NEUT (AUTO) 3.4 10^3/uL (1.7-8.2); BASOPHILS % (AUTO) 0.3 % (0-2); EOSINOPHILS % (AUTO) 1.2 % (0-6); HEMATOCRIT 31.7 % (36.0-47.0); HEMOGLOBIN 10.7 g/dL (12.0-15.5); LYMPHOCYTES % (AUTO) 34.9 % (13-45); MEAN CORPUSCULAR HEMOGLOBIN 29.7 pg (27.0-33.4); MEAN CORPUSCULAR HGB CONC 33.7 g/dL (32.0-36.0); MEAN CORPUSCULAR VOLUME 88 fl (80-97); PLATELET COUNT 275 10^3/uL (150-450); RED BLOOD COUNT 3.59 10^6/uL (3.72-5.28); RED CELL DISTRIBUTION WIDTH 17.2 % (11.5-14.0); SEGMENTED NEUTROPHILS % (AUTO) 55.6 % (42-78); TOTAL CELLS COUNTED % (AUTO) 100 %; WHITE BLOOD COUNT 6.1 10^3/uL (4.0-10.5)
[2020-02-23] MEDS ORDERED: INFLUENZA QUAD (6MOS+) 2020-21 VAC 0.5 ML SYR IM ONE (08:00)
[2020-02-23 08:08] LABS: ANION GAP 7 (5-19); BLOOD UREA NITROGEN 8 mg/dL (7-20); C-REACTIVE PROTEIN 41.6 mg/L (<10.0); CALCIUM 9.1 mg/dL (8.4-10.2); CARBON DIOXIDE 24 mmol/L (22-30); CHLORIDE 108 mmol/L (98-107); GLUCOSE 77 mg/dL (75-110); POTASSIUM 3.6 mmol/L (3.6-5.0)
[2020-02-23] MEDS: BUSPIRONE HCL 10 MG TABLET PO SCH ×2 (09:50→22:26)
[2020-02-23] MEDS: MELOXICAM 7.5 MG TABLET PO SCH ×2 (09:50→17:45)
[2020-02-23] MEDS: ASCORBIC ACID 500 MG TABLET PO SCH (09:50)
[2020-02-23] MEDS: CHOLECALCIFEROL (D3) 1,000 UNIT (25 MCG) TABLET PO SCH (09:50)
[2020-02-23] MEDS: DOCUSATE SODIUM 100 MG CAPSULE PO SCH (09:50)
[2020-02-23] MEDS: ZINC SULFATE 220 MG CAPSULE PO SCH (09:50)
[2020-02-23] MEDS: GUAIFENESIN 600 MG TABLET.SA PO SCH ×2 (09:50→22:26)
[2020-02-23] MEDS: AZITHROMYCIN 250 MG TABLET PO SCH (09:51)
[2020-02-23] MEDS: LUBIPROSTONE 24 MCG CAPSULE PO SCH (09:51)
[2020-02-23] MEDS: DEXAMETHASONE SOD PHOS INJ 10 MG/1 ML VIAL IV SCH (09:52)
[2020-02-23] MEDS: ENOXAPARIN SODIUM INJ 40 MG/0.4 ML DISP.SYRIN SUBCUT SCH (09:54)
[2020-02-23] MEDS: FLUTICASONE/VILANTEROL 100-25 MCG/DOSE IH SCH (09:55)
[2020-02-23] MEDS: BUPROPION HCL 75 MG TABLET PO SCH ×2 (09:55→22:27)
[2020-02-23] MEDS: CEFTRIAXONE 2 GM/D5W RTU 2 GM/50 ML RTUPB IV SCH (09:56)
[2020-02-23] MEDS: NICOTINE 14 MG/24 HR PATCH.TD24 TD SCH (09:57)
[2020-02-23] MEDS ORDERED: (PENDING PHARMACY ID) (Bupropion Hcl [Bupropion Xl] 150 MG) PO SCH (10:00)
[2020-02-23] MEDS: OXYCODONE-ACETAMINOPHEN 5-325 MG TABLET PO PRN ×2 (10:17→22:29)
--- NOTE | 2020-02-23 10:19 | PDOC PROGRESS REPORT ---
Subjective Date:: 02/23/20 Subjective:: Patient still with cough. She would like something stronger. Good news is that she is Covid negative. Reason For Visit: HYPOXEMIA, PERSON UNDER INVESTIGATION FOR SEVERE A Physical Exam Vital Signs: Temp Pulse Resp BP Pulse Ox 98.3 F 76 18 135/54 H 89 L 02/23/20 08:00 02/23/20 08:00 02/23/20 08:00 02/23/20 08:00 02/23/20 08:00 Intake & Output 02/22/20 02/23/20 02/24/20 06:59 06:59 06:59 Intake Total 310 3427 Balance 310 3427 Weight 76.5 kg 77.8 kg General appearance: PRESENT: cooperative, mild distress, well-developed Head exam: PRESENT: atraumatic, normocephalic Mouth exam: PRESENT: moist, tongue midline Respiratory exam: PRESENT: rhonchi - right, symmetrical, wheezes - bilaterally. ABSENT: rales, tachypnea Cardiovascular exam: PRESENT: RRR, +S1, +S2. ABSENT: bradycardia, diastolic murmur, irregular rhythm, systolic murmur, tachycardia GI/Abdominal exam: PRESENT: normal bowel sounds, soft. ABSENT: tenderness Rectal exam: PRESENT: deferred Gentrourinary exam: ABSENT: indwelling catheter Neurological exam: PRESENT: alert, awake, oriented to person, oriented to place, oriented to time, oriented to situation, CN II-XII grossly intact Psychiatric exam: PRESENT: appropriate affect. ABSENT: agitated, anxious Focused psych exam: ABSENT: delusional, paranoid, restlessness Skin exam: PRESENT: dry, normal color, warm. ABSENT: rash Results Laboratory Results: 02/23/20 07:12 02/23/20 07:12 02/22/20 02/22/20 02/23/20 10:06 10:06 07:12 WBC 7.3 6.1 RBC 3.86 3.59 L Hgb 11.6 L 10.7 L Hct 34.4 L 31.7 L MCV 89 88 MCH 29.9 29.7 MCHC 33.6 33.7 RDW 17.8 H 17.2 H Plt Count 330 275 Seg Neutrophils % 55.6 Sodium 138.6 Potassium 3.9 Chloride 105 Carbon Dioxide 22 Anion Gap 12 BUN 8 Creatinine 0.46 L Est GFR ( Amer) > 60 Glucose 115 H Calcium 9.7 Magnesium 2.1 C-Reactive Protein 02/23/20 07:12 WBC RBC Hgb Hct MCV MCH MCHC RDW Plt Count Seg Neutrophils % Sodium 139.2 Potassium 3.6 Chloride 108 H Carbon Dioxide 24 Anion Gap 7 BUN 8 Creatinine 0.39 L Est GFR ( Amer) > 60 Glucose 77 Calcium 9.1 Magnesium 1.8 C-Reactive Protein 41.6 H 02/21/20 19:20 Blood Blood Culture (PCR) - Final 02/21/20 15:05 Troponin I < 0.012 Impressions: Chest X-Ray 02/21/20 12:27 IMPRESSION: Mild ill-defined alveolar opacities which may indicate mild pulmonary edema or developing airspace disease. Assessment and Plan - Diagnosis (1) Bilateral pneumonia Qualifiers: Pneumonia type: due to unspecified organism Lung location: lower lobe of lung Qualified Code(s): J18.9 - Pneumonia, unspecified organism Is this a current diagnosis for this admission?: Yes (2) Person under investigation for severe acute respiratory syndrome coronavirus 2 (SARS-CoV-2) infection Is this a current diagnosis for this admission?: Yes (3) Acute on chronic respiratory failure with hypoxemia Is this a current diagnosis for this admission?: Yes (4) Cough Is this a current diagnosis for this admission?: Yes (5) Anxiety and depression Is this a current diagnosis for this admission?: Yes (6) COPD with acute exacerbation Is this a current diagnosis for this admission?: Yes (7) Neck pain, chronic Is this a current diagnosis for this admission?: Yes (8) Cigarette nicotine dependence Qualifiers: Substance use status: uncomplicated Qualified Code(s): F17.210 - Nicotine dependence, cigarettes, uncomplicated Is this a current diagnosis for this admission?: Yes - Plan Summary Summary: (1) Bilateral pneumonia Qualifiers: Pneumonia type: due to unspecified organism Lung location: lower lobe of lung Qualified Code(s): J18.9 - Pneumonia, unspecified organism Is this a current diagnosis for this admission?: Yes (2) Person under investigation for severe acute respiratory syndrome coronavirus 2 (SARS-CoV-2) infection Is this a current diagnosis for this admission?: Yes (3) Acute on chronic respiratory failure with hypoxemia Is this a current diagnosis for this admission?: Yes (4) Cough Is this a current diagnosis for this admission?: Yes (5) Anxiety and depression Is this a current diagnosis for this admission?: Yes (6) COPD with acute exacerbation Is this a current diagnosis for this admission?: Yes (7) Neck pain, chronic Is this a current diagnosis for this admission?: Yes (8) Cigarette nicotine dependence Qualifiers: Substance use status: uncomplicated Qualified Code(s): F17.210 - Nicotine dependence, cigarettes, uncomplicated Is this a current diagnosis for this admission?: Yes 02/21/2020 Possible Covid pneumonia bilateral-ceftriaxone, azithromycin as well as guaifenesin, vitamin C, vitamin D, melatonin and IV Decadron. In addition inhaler therapy has been ordered. Acetaminophen is available for fever and the patient will be receiving IV fluids as well. Await Covid test results. Respiratory failure with hypoxemia-at rest the patient has adequate saturation but with minimal exertion she drops to below 90%. Will supplement oxygen to keep saturation greater than 90% if needed. Chronic obstructive pulmonary disease-despite the patient's report of specialist investigation without a COPD diagnosis her hyperinflated lungs with flattened diaphragms suggest otherwise. We will use a dual medication inhaler with as n eeded albuterol. She has inhalers and a nebulizer machine at home as well. We will try and avoid nebulizer treatments until Covid status is known. Anxiety and depression-the patient takes Seroquel at night to sleep. She takes another antidepressant medication in the morning. She was on Prozac but thinks it has changed. Await pharmacy's medication reconciliation for current list. Valium will be available if needed as well. Chronic neck pain-it appears that she uses [place] and Flexeril. Percocet and Flexeril have been ordered. Nicotine dependence-the patient smokes half pack of cigarettes every day. She requested a nicotine patch scheduled and not as needed. 02/22/2020 Srlqpwahg-L-ulxbc was minimally elevated and CRP is elevated. Ferritin and LDH are normal. This could end up being just a bed bilateral pneumonia. I did increase the ceftriaxone to 2 g daily. Respiratory failure with hypoxemia-continue oxygen supplementation. Breo initiated. I have added montelukast. Continue IV Decadron. Albuterol inhalers also available. COPD-it is my opinion that the patient does have underlying COPD. There is evidence of Spiriva and Advair on previous prescriptions. We will further address at discharge. Anxiety and depression-I did speak to pharmacy. The pharmacy benefit manager is trying very hard to complete the medication reconciliation. She is making additional calls as there are lots of prescriptions that have not been filled for a while and the patient herself is not particularly helpful. I believe she is going to call the who likely has a better idea of what the patient is actually taking. Right now she is on the Seroquel and Valium. I have resumed BuSpar and Wellbutrin as we believe these are her current medications. If there is any feedback from the pharmacy benefit manager I will adjust medications accordingly. Chronic neck pain-currently with Flexeril and Percocet. 02/23/2020 Pneumonia is likely community-acquired as Covid testing is negative. Continue antibiotic therapy. COPD-very likely that patient does have COPD despite her denial. We will continue to treat. I will also encourage ongoing outpatient use of combined inhaler therapy Depression and anxiety-I believe we do have an accurate representation of her current medicines. She seems to be tolerating these. Continue same. Chronic neck pain-continue muscle relaxants and analgesia. The coughing certainly is not helping. Tobacco dependence-continue nicotine patch - Time Time Spent with patient: Less than 15 minutes Smoking Cessation Education: 3 to 10 minutes Medications reviewed and adjusted accordingly: Yes Anticipated Discharge Disposition: Home, Self Care Anticipated Discharge Timeframe: within 72 hours
[2020-02-23] MEDS ORDERED: ALBUTEROL SULFATE 0.083% NEB 2.5 MG/3 ML AMPUL NEB PRN (10:20)
[2020-02-23] MEDS: CYCLOBENZAPRINE HCL 10 MG TABLET PO PRN (12:09)
[2020-02-23] MEDS: IPRATROPIUM/ALBUTEROL 0.5-2.5 MG/3 ML AMPUL NEB SCH ×2 (15:27→21:16)
[2020-02-23] MEDS ORDERED: GUAIFENESIN/CODEINE PHOS 100-10 MG/ 5 ML UDC PO PRN (19:53)
[2020-02-23] MEDS: BUDESONIDE NEB 0.5 MG/2 ML AMPUL NEB SCH (21:16)
[2020-02-23] MEDS: BENZOCAINE/MENTHOL SORE THROAT LOZENGE BUCCAL PRN (22:26)
[2020-02-23] MEDS: MONTELUKAST SODIUM 10 MG TABLET PO SCH (22:26)
[2020-02-23] MEDS: QUETIAPINE FUMARATE 100 MG TABLET PO SCH (22:41)
[2020-02-24] MEDS: MORPHINE SULFATE 10 MG/ML INJ IV PRN ×5 (00:29→22:17)
[2020-02-24] MEDS: RINGERS SOLUTION,LACTATED 1,000 ML IV PRN ×3 (01:50→20:18)
[2020-02-24] MEDS: IPRATROPIUM/ALBUTEROL 0.5-2.5 MG/3 ML AMPUL NEB SCH ×4 (02:36→20:43)
[2020-02-24] MEDS: PANTOPRAZOLE SODIUM 40 MG TABLET.DR PO SCH (05:16)
[2020-02-24] MEDS: BENZOCAINE/MENTHOL SORE THROAT LOZENGE BUCCAL PRN ×2 (05:17→17:56)
[2020-02-24] MEDS: BUDESONIDE NEB 0.5 MG/2 ML AMPUL NEB SCH ×2 (07:55→20:43)
[2020-02-24] MEDS: BUSPIRONE HCL 10 MG TABLET PO SCH ×2 (10:29→22:13)
[2020-02-24] MEDS: MELOXICAM 7.5 MG TABLET PO SCH ×2 (10:29→18:08)
[2020-02-24] MEDS: GUAIFENESIN 600 MG TABLET.SA PO SCH ×2 (10:29→22:14)
[2020-02-24] MEDS: DOCUSATE SODIUM 100 MG CAPSULE PO SCH (10:29)
[2020-02-24] MEDS: BUPROPION HCL 75 MG TABLET PO SCH ×2 (10:29→22:13)
[2020-02-24] MEDS: NICOTINE 14 MG/24 HR PATCH.TD24 TD SCH (10:30)
[2020-02-24] MEDS: AZITHROMYCIN 250 MG TABLET PO SCH (10:30)
[2020-02-24] MEDS: CEFTRIAXONE 2 GM/D5W RTU 2 GM/50 ML RTUPB IV SCH (10:30)
[2020-02-24] MEDS: LUBIPROSTONE 24 MCG CAPSULE PO SCH (10:30)
[2020-02-24] MEDS: FLUTICASONE/VILANTEROL 100-25 MCG/DOSE IH SCH (10:32)
[2020-02-24] MEDS: ENOXAPARIN SODIUM INJ 40 MG/0.4 ML DISP.SYRIN SUBCUT SCH (10:36)
[2020-02-24] MEDS: CALCIUM CARBONATE 500 MG TAB.CHEW PO PRN (11:46)
--- NOTE | 2020-02-24 17:05 | PDOC PROGRESS REPORT ---
Subjective Date:: 02/24/20 Subjective:: The patient's is at the bedside. Both the patient and her tested Covid negative. She is feeling better but is still bothered by the cough. She was supposed to see Dr. Shahid today. I will reach out and request a consult so that he may see the patient in-house. Reason For Visit: HYPOXEMIA, PERSON UNDER INVESTIGATION FOR SEVERE A Physical Exam Vital Signs: Temp Pulse Resp BP Pulse Ox 97.6 F 77 18 146/72 H 91 L 02/24/20 11:56 02/24/20 14:00 02/24/20 14:00 02/24/20 11:56 02/24/20 14:00 Intake & Output 02/23/20 02/24/20 02/25/20 06:59 06:59 06:59 Intake Total 3427 1810 50 Output Total 900 Balance 3427 910 50 Weight 77.8 kg 77.3 kg General appearance: PRESENT: cooperative, mild distress, well-developed Head exam: PRESENT: atraumatic, normocephalic Ear exam: PRESENT: normal external ear exam. ABSENT: bleeding, drainage Mouth exam: PRESENT: moist, tongue midline Respiratory exam: PRESENT: prolonged expiratory phas, symmetrical, tachypnea, wheezes - Bilateral. ABSENT: rales, rhonchi Cardiovascular exam: PRESENT: RRR, +S1, +S2 GI/Abdominal exam: PRESENT: normal bowel sounds, soft, tenderness - Tender along the subcostal margins. ABSENT: distended, guarding Rectal exam: PRESENT: deferred Gentrourinary exam: ABSENT: indwelling catheter Extremities exam: ABSENT: pedal edema Musculoskeletal exam: PRESENT: ambulatory, normal inspection. ABSENT: deformity, dislocation Neurological exam: PRESENT: alert, awake, oriented to person, oriented to place, oriented to time, oriented to situation, CN II-XII grossly intact. ABSENT: altered Psychiatric exam: PRESENT: appropriate affect. ABSENT: agitated, anxious Results Laboratory Results: 02/23/20 07:12 02/23/20 07:12 02/21/20 19:20 Blood Blood Culture (PCR) - Final 02/21/20 19:20 Blood Blood Culture - Final Staphylococcus Epidermidis Micrococcus Species 02/21/20 17:40 Throat Throat Culture - Final NORMAL CHAYA 02/21/20 15:05 Troponin I < 0.012 Impressions: Chest X-Ray 02/21/20 12:27 IMPRESSION: Mild ill-defined alveolar opacities which may indicate mild p ulmonary edema or developing airspace disease. Assessment and Plan - Diagnosis (1) Bilateral pneumonia Qualifiers: Pneumonia type: due to unspecified organism Lung location: lower lobe of lung Qualified Code(s): J18.9 - Pneumonia, unspecified organism Is this a current diagnosis for this admission?: Yes (2) Person under investigation for severe acute respiratory syndrome coronavirus 2 (SARS-CoV-2) infection Is this a current diagnosis for this admission?: Yes (3) Acute on chronic respiratory failure with hypoxemia Is this a current diagnosis for this admission?: Yes (4) Cough Is this a current diagnosis for this admission?: Yes (5) Anxiety and depression Is this a current diagnosis for this admission?: Yes (6) COPD with acute exacerbation Is this a current diagnosis for this admission?: Yes (7) Neck pain, chronic Is this a current diagnosis for this admission?: Yes (8) Cigarette nicotine dependence Qualifiers: Substance use status: uncomplicated Qualified Code(s): F17.210 - Nicotine dependence, cigarettes, uncomplicated Is this a current diagnosis for this admission?: Yes - Plan Summary Summary: (1) Bilateral pneumonia Qualifiers: Pneumonia type: due to unspecified organism Lung location: lower lobe of lung Qualified Code(s): J18.9 - Pneumonia, unspecified organism Is this a current diagnosis for this admission?: Yes (2) Person under investigation for severe acute respiratory syndrome coronavirus 2 (SARS-CoV-2) infection Is this a current diagnosis for this admission?: Yes (3) Acute on chronic respiratory failure with hypoxemia Is this a current diagnosis for this admission?: Yes (4) Cough Is this a current diagnosis for this admission?: Yes (5) Anxiety and depression Is this a current diagnosis for this admission?: Yes (6) COPD with acute exacerbation Is this a current diagnosis for this admission?: Yes (7) Neck pain, chronic Is this a current diagnosis for this admission?: Yes (8) Cigarette nicotine dependence Qualifiers: Substance use status: uncomplicated Qualified Code(s): F17.210 - Nicotine dependence, cigarettes, uncomplicated Is this a current diagnosis for this admission?: Yes 02/21/2020 Possible Covid pneumonia bilateral-ceftriaxone, azithromycin as well as guaifenesin, vitamin C, vitamin D, melatonin and IV Decadron. In addition inhaler therapy has been ordered. Acetaminophen is available for fever and the patient will be receiving IV fluids as well. Await Covid test results. Respiratory failure with hypoxemia-at rest the patient has adequate saturation but with minimal exertion she drops to below 90%. Will supplement oxygen to keep saturation greater than 90% if needed. Chronic obstructive pulmonary disease-despite the patient's report of specialist investigation without a COPD diagnosis her hyperinflated lungs with flattened diaphragms suggest otherwise. We will use a dual medication inhaler with as needed albuterol. She has inhalers and a nebulizer machine at home as well. We will try and avoid nebulizer treatments until Covid status is known. Anxiety and depression-the patient takes Seroquel at night to sleep. She takes another antidepressant medication in the morning. She was on Prozac but thinks it has changed. Await pharmacy's medication reconciliation for current list. Valium will be available if needed as well. Chronic neck pain-it appears that she uses [place] and Flexeril. Percocet and Flexeril have been ordered. Nicotine dependence-the patient smokes half pack of cigarettes every day. She requested a nicotine patch scheduled and not as needed. 02/22/2020 Ruldulnsd-E-nqaid was minimally elevated and CRP is elevated. Ferritin and LDH are normal. This could end up being just a bed bilateral pneumonia. I did increase the ceftriaxone to 2 g daily. Respiratory failure with hypoxemia-continue oxygen supplementation. Breo initiated. I have added montelukast. Continue IV Decadron. Albuterol inhalers also available. COPD-it is my opinion that the patient does have underlying COPD. There is evidence of Spiriva and Advair on previous prescriptions. We will further address at discharge. Anxiety and depression-I did speak to pharmacy. The pharmacy resource tech is trying very hard to complete the medication reconciliation. She is making additional calls as there are lots of prescriptions that have not been filled for a while and the patient herself is not particularly helpful. I believe she is going to call the who likely has a better idea of what the patient is actually taking. Right now she is on the Seroquel and Valium. I have resumed BuSpar and Wellbutrin as we believe these are her current medications. If there is any feedback from the pharmacy resource tech I will adjust medications accordingly. Chronic neck pain-currently with Flexeril and Percocet. 02/23/2020 Pneumonia is likely community-acquired as Covid testing is negative. Continue antibiotic therapy. COPD-very likely that patient does have COPD despite her denial. We will continue to treat. I will also encourage ongoing outpatient use of combined inhaler therapy Depression and anxiety-I believe we do have an accurate representation of her current medicines. She seems to be tolerating these. Continue same. Chronic neck pain-continue muscle relaxants and analgesia. The coughing certainly is not helping. Tobacco dependence-continue nicotine patch - Time Time Spent with patient: 15-24 minutes Medications reviewed and adjusted accordingly: Yes Anticipated Discharge Disposition: Home, Self Care Anticipated Discharge Timeframe: within 72 hours
[2020-02-24] MEDS: MONTELUKAST SODIUM 10 MG TABLET PO SCH (22:13)
[2020-02-24] MEDS: QUETIAPINE FUMARATE 100 MG TABLET PO SCH (22:13)
[2020-02-25] MEDS: IPRATROPIUM/ALBUTEROL 0.5-2.5 MG/3 ML AMPUL NEB SCH ×4 (02:47→21:17)
[2020-02-25] MEDS: PANTOPRAZOLE SODIUM 40 MG TABLET.DR PO SCH (06:00)
[2020-02-25 06:53] LABS: HEMATOCRIT 33.4 % (36.0-47.0); HEMOGLOBIN 11.1 g/dL (12.0-15.5); MEAN CORPUSCULAR HEMOGLOBIN 29.3 pg (27.0-33.4); MEAN CORPUSCULAR HGB CONC 33.3 g/dL (32.0-36.0); MEAN CORPUSCULAR VOLUME 88 fl (80-97); PLATELET COUNT 316 10^3/uL (150-450); RED CELL DISTRIBUTION WIDTH 17.1 % (11.5-14.0); WHITE BLOOD COUNT 6.3 10^3/uL (4.0-10.5)
[2020-02-25 07:19] LABS: ANION GAP 10 (5-19); BLOOD UREA NITROGEN 3 mg/dL (7-20); CARBON DIOXIDE 25 mmol/L (22-30); CHLORIDE 106 mmol/L (98-107); GLUCOSE 81 mg/dL (75-110); POTASSIUM 3.5 mmol/L (3.6-5.0)
[2020-02-25 07:20] LABS: CALCIUM 9.6 mg/dL (8.4-10.2)
[2020-02-25] MEDS: BUDESONIDE NEB 0.5 MG/2 ML AMPUL NEB SCH ×2 (08:01→21:17)
[2020-02-25] MEDS: MORPHINE SULFATE 10 MG/ML INJ IV PRN ×3 (08:19→23:16)
[2020-02-25] MEDS: RINGERS SOLUTION,LACTATED 1,000 ML IV PRN (08:20)
[2020-02-25] MEDS: GUAIFENESIN 600 MG TABLET.SA PO SCH ×2 (09:20→23:03)
[2020-02-25] MEDS: BUPROPION HCL 75 MG TABLET PO SCH ×2 (09:20→23:03)
[2020-02-25] MEDS: DOCUSATE SODIUM 100 MG CAPSULE PO SCH (09:20)
[2020-02-25] MEDS: AZITHROMYCIN 250 MG TABLET PO SCH (09:20)
[2020-02-25] MEDS: BUSPIRONE HCL 10 MG TABLET PO SCH ×2 (09:20→23:03)
[2020-02-25] MEDS: LUBIPROSTONE 24 MCG CAPSULE PO SCH (09:20)
[2020-02-25] MEDS: MELOXICAM 7.5 MG TABLET PO SCH ×2 (09:21→18:40)
[2020-02-25] MEDS: NICOTINE 14 MG/24 HR PATCH.TD24 TD SCH (09:22)
[2020-02-25] MEDS: CEFTRIAXONE 2 GM/D5W RTU 2 GM/50 ML RTUPB IV SCH (09:23)
[2020-02-25] MEDS: ENOXAPARIN SODIUM INJ 40 MG/0.4 ML DISP.SYRIN SUBCUT SCH (09:25)
[2020-02-25] MEDS: FLUTICASONE/VILANTEROL 100-25 MCG/DOSE IH SCH (09:28)
[2020-02-25] MEDS: CALCIUM CARBONATE 500 MG TAB.CHEW PO PRN (13:41)
[2020-02-25] MEDS: BENZOCAINE/MENTHOL SORE THROAT LOZENGE BUCCAL PRN (13:44)
--- NOTE | 2020-02-25 17:09 | PDOC PROGRESS REPORT ---
Subjective Date:: 02/25/20 Subjective:: Breathing improved however still complains of still persistent cough. Her vital signs remained stable. Reason For Visit: HYPOXEMIA, PERSON UNDER INVESTIGATION FOR SEVERE A Physical Exam Vital Signs: Temp Pulse Resp BP Pulse Ox 98.2 F 79 16 114/88 H 94 02/25/20 15:18 02/25/20 15:18 02/25/20 15:18 02/25/20 15:18 02/25/20 15:18 Intake & Output 02/24/20 02/25/20 02/26/20 06:59 06:59 06:59 Intake Total 1810 4466 50 Output Total 900 3200 Balance 910 1266 50 Weight 77.3 kg 77.3 kg General appearance: PRESENT: no acute distress, well-developed, well-nourished Head exam: PRESENT: atraumatic, normocephalic Eye exam: PRESENT: conjunctiva pink, EOMI, PERRLA. ABSENT: scleral icterus Ear exam: PRESENT: normal external ear exam Mouth exam: PRESENT: moist, tongue midline Neck exam: ABSENT: carotid bruit, JVD, lymphadenopathy, thyromegaly Respiratory exam: PRESENT: decreased breath sounds. ABSENT: rales, rhonchi, wheezes - Occasional Cardiovascular exam: PRESENT: RRR. ABSENT: diastolic murmur, rubs, systolic murmur Pulses: PRESENT: normal dorsalis pedis pul Vascular exam: PRESENT: normal capillary refill GI/Abdominal exam: PRESENT: normal bowel sounds, soft. ABSENT: distended, guarding, mass, organolmegaly, rebound, tenderness Rectal exam: PRESENT: deferred Extremities exam: PRESENT: full ROM. ABSENT: calf tenderness, clubbing, pedal edema Neurological exam: PRESENT: alert, awake, oriented to person, oriented to place, oriented to time, oriented to situation, CN II-XII grossly intact. ABSENT: motor sensory deficit Psychiatric exam: PRESENT: appropriate affect, normal mood. ABSENT: homicidal ideation, suicidal ideation Skin exam: PRESENT: dry, intact, warm. ABSENT: cyanosis, rash Results Laboratory Results: 02/25/20 06:18 02/25/20 06:18 02/25/20 02/25/20 06:18 06:18 WBC 6.3 RBC 3.80 Hgb 11.1 L Hct 33.4 L MCV 88 MCH 29.3 MCHC 33.3 RDW 17.1 H Plt Count 316 Sodium 141.2 Potassium 3.5 L Chloride 106 Carbon Dioxide 25 Anion Gap 10 BUN 3 L Creatinine 0.38 L Est GFR ( Amer) > 60 Glucose 81 Calcium 9.6 Magnesium 1.9 02/21/20 15:05 Troponin I < 0.012 Impressions: Chest X-Ray 02/21/20 12:27 IMPRESSION: Mild ill-defined alveolar opacities which may indicate mild pulmonary edema or developing airspace disease. Assessment and Plan - Diagnosis (1) Acute on chronic respiratory failure with hypoxemia Is this a current diagnosis for this admission?: Yes (2) Anxiety and depression Is this a current diagnosis for this admission?: Yes (3) Bilateral pneumonia Qualifiers: Pneumonia type: due to unspecified organism Lung location: lower lobe of lung Qualified Code(s): J18.9 - Pneumonia, unspecified organism Is this a current diagnosis for this admission?: Yes (4) COPD exacerbation Is this a current diagnosis for this admission?: Yes - Plan Summary Summary: (1) Bilateral pneumonia Qualifiers: Pneumonia type: due to unspecified organism Lung location: lower lobe of lung Qualified Code(s): J18.9 - Pneumonia, unspecified organism Is this a current diagnosis for this admission?: Yes (2) Person under investigation for severe acute respiratory syndrome coronavirus 2 (SARS-CoV-2) infection Is this a current diagnosis for this admission?: Yes (3) Acute on chronic respiratory failure with hypoxemia Is this a current diagnosis for this admission?: Yes (4) Cough Is this a current diagnosis for this admission?: Yes (5) Anxiety and depression Is this a current diagnosis for this admission?: Yes (6) COPD with acute exacerbation Is this a current diagnosis for this admission?: Yes (7) Neck pain, chronic Is this a current diagnosis for this admission?: Yes (8) Cigarette nicotine dependence Qualifiers: Substance use status: uncomplicated Qualified Code(s): F17.210 - Nicotine dependence, cigarettes, uncomplicated Is this a current diagnosis for this admission?: Yes 02/21/2020 Possible Covid pneumonia bilateral-ceftriaxone, azithromycin as well as guaifenesin, vitamin C, vitamin D, melatonin and IV Decadron. In addition inhaler therapy has been ordered. Acetaminophen is available for fever and the patient will be receiving IV fluids as well. Await Covid test results. Respiratory failure with hypoxemia-at rest the patient has adequate saturation but with minimal exertion she drops to below 90%. Will supplement oxygen to keep saturation greater than 90% if needed. Chronic obstructive pulmonary disease-despite the patient's report of specialist investigation without a COPD diagnosis her hyperinflated lungs with flattened d iaphragms suggest otherwise. We will use a dual medication inhaler with as needed albuterol. She has inhalers and a nebulizer machine at home as well. We will try and avoid nebulizer treatments until Covid status is known. Anxiety and depression-the patient takes Seroquel at night to sleep. She takes another antidepressant medication in the morning. She was on Prozac but thinks it has changed. Await pharmacy's medication reconciliation for current list. Valium will be available if needed as well. Chronic neck pain-it appears that she uses [place] and Flexeril. Percocet and Flexeril have been ordered. Nicotine dependence-the patient smokes half pack of cigarettes every day. She requested a nicotine patch scheduled and not as needed. 02/22/2020 [id number]-[id number]-[id number] was minimally elevated and CRP is elevated. Ferritin and LDH are normal. This could end up being just a bed bilateral pneumonia. I did increase the ceftriaxone to 2 g daily. Respiratory failure with hypoxemia-continue oxygen supplementation. Breo initiated. I have added montelukast. Continue IV Decadron. Albuterol inhalers also available. COPD-it is my opinion that the patient does have underlying COPD. There is evidence of Spiriva and Advair on previous prescriptions. We will further address at discharge. Anxiety and depression-I did speak to pharmacy. The pharmacy analyst is trying very hard to complete the medication reconciliation. She is making additional calls as there are lots of prescriptions that have not been filled for a while and the patient herself is not particularly helpful. I believe she is going to call the who likely has a better idea of what the patient is actually taking. Right now she is on the Seroquel and Valium. I have resumed BuSpar and Wellbutrin as we believe these are her current medications. If there is any feedback from the pharmacy analyst I will adjust medications accordingly. Chronic neck pain-currently with Flexeril and Percocet. 02/23/2020 Pneumonia is likely community-acquired as Covid testing is negative. Continue antibiotic therapy. COPD-very likely that patient does have COPD despite her denial. We will continue to treat. I will also encourage ongoing outpatient use of combined inhaler therapy Depression and anxiety-I believe we do have an accurate representation of her current medicines. She seems to be tolerating these. Continue same. Chronic neck pain-continue muscle relaxants and analgesia. The coughing certainly is not helping. Tobacco dependence-continue nicotine patch 02/25/2020 Patient is not on any steroids. We will continue antibiotics for another day and if she remains stable can be discharged in a.m. to complete her recuperation at home. - Time Time Spent with patient: Less than 15 minutes Medications reviewed and adjusted accordingly: Yes Anticipated Discharge Disposition: Home, Self Care Anticipated Discharge Timeframe: within 24 hours
[2020-02-25] MEDS: QUETIAPINE FUMARATE 100 MG TABLET PO SCH (23:03)
[2020-02-25] MEDS: MONTELUKAST SODIUM 10 MG TABLET PO SCH (23:03)
[2020-02-26] MEDS: IPRATROPIUM/ALBUTEROL 0.5-2.5 MG/3 ML AMPUL NEB SCH ×4 (02:36→21:11)
[2020-02-26] MEDS: BUDESONIDE NEB 0.5 MG/2 ML AMPUL NEB SCH ×2 (08:37→21:11)
[2020-02-26] MEDS: PANTOPRAZOLE SODIUM 40 MG TABLET.DR PO SCH (09:45)
[2020-02-26] MEDS: OXYCODONE-ACETAMINOPHEN 5-325 MG TABLET PO PRN (09:45)
[2020-02-26] MEDS: BUPROPION HCL 75 MG TABLET PO SCH ×2 (09:46→21:04)
[2020-02-26] MEDS: GUAIFENESIN 600 MG TABLET.SA PO SCH ×2 (09:46→21:04)
[2020-02-26] MEDS: BUSPIRONE HCL 10 MG TABLET PO SCH ×2 (09:46→21:04)
[2020-02-26] MEDS: MELOXICAM 7.5 MG TABLET PO SCH ×2 (09:47→17:58)
[2020-02-26] MEDS: AZITHROMYCIN 250 MG TABLET PO SCH (09:47)
[2020-02-26] MEDS: LUBIPROSTONE 24 MCG CAPSULE PO SCH (09:47)
[2020-02-26] MEDS: FLUTICASONE/VILANTEROL 100-25 MCG/DOSE IH SCH (09:47)
[2020-02-26] MEDS: DOCUSATE SODIUM 100 MG CAPSULE PO SCH (09:47)
[2020-02-26] MEDS: ENOXAPARIN SODIUM INJ 40 MG/0.4 ML DISP.SYRIN SUBCUT SCH (09:48)
[2020-02-26] MEDS: NICOTINE 14 MG/24 HR PATCH.TD24 TD SCH (09:48)
[2020-02-26] MEDS: CEFTRIAXONE 2 GM/D5W RTU 2 GM/50 ML RTUPB IV SCH (09:49)
[2020-02-26] MEDS ORDERED: METHYLPREDNISOLONE INJ 40 MG/1 ML SDV IV ONE (10:53)
--- NOTE | 2020-02-26 11:02 | PDOC PROGRESS REPORT ---
Subjective Date:: 02/26/20 Subjective:: Breathing still complains of still persistent cough. Her vital signs remained s table. Reason For Visit: HYPOXEMIA, PERSON UNDER INVESTIGATION FOR SEVERE A Physical Exam Vital Signs: Temp Pulse Resp BP Pulse Ox 98.4 F 87 24 H 145/65 H 92 02/26/20 08:03 02/26/20 08:37 02/26/20 08:37 02/26/20 08:03 02/26/20 08:37 Intake & Output 02/25/20 02/26/20 02/27/20 06:59 06:59 06:59 Intake Total 4466 1776 Output Total 3200 400 Balance 1266 1376 Weight 77.3 kg 80.1 kg General appearance: PRESENT: no acute distress, well-developed, well-nourished Head exam: PRESENT: atraumatic, normocephalic Eye exam: PRESENT: conjunctiva pink, EOMI, PERRLA. ABSENT: scleral icterus Ear exam: PRESENT: normal external ear exam Mouth exam: PRESENT: moist, tongue midline Neck exam: ABSENT: carotid bruit, JVD, lymphadenopathy, thyromegaly Respiratory exam: PRESENT: rhonchi, unlabored, wheezes - Especially expiratory posteriorly. ABSENT: rales Cardiovascular exam: PRESENT: RRR, +S1, +S2. ABSENT: diastolic murmur, rubs, systolic murmur Pulses: PRESENT: normal dorsalis pedis pul Vascular exam: PRESENT: normal capillary refill GI/Abdominal exam: PRESENT: normal bowel sounds, soft. ABSENT: distended, guarding, mass, organolmegaly, rebound, tenderness Rectal exam: PRESENT: deferred Extremities exam: PRESENT: full ROM. ABSENT: calf tenderness, clubbing, pedal edema Neurological exam: PRESENT: alert, awake, oriented to person, oriented to place, oriented to time, oriented to situation, CN II-XII grossly intact. ABSENT: motor sensory deficit Psychiatric exam: PRESENT: appropriate affect, normal mood. ABSENT: homicidal ideation, suicidal ideation Skin exam: PRESENT: dry, intact, warm. ABSENT: cyanosis, rash Results Laboratory Results: 02/25/20 06:18 02/25/20 06:18 02/21/20 15:05 Troponin I < 0.012 Impressions: Chest X-Ray 02/21/20 12:27 IMPRESSION: Mild ill-defined alveolar opacities which may indicate mild pulmonary edema or developing airspace disease. Assessment and Plan - Diagnosis (1) Acute on chronic respiratory failure with hypoxemia Is this a current diagnosis for this admission?: Yes (2) Anxiety and depression Is this a current diagnosis for this admission?: Yes (3) Bilateral pneumonia Qualifiers: Pneumonia type: due to unspecified organism Lung location: lower lobe of lung Qualified Code(s): J18.9 - Pneumonia, unspecified organism Is this a current diagnosis for this admission?: Yes (4) COPD exacerbation Is this a current diagnosis for this admission?: Yes - Plan Summary Summary: (1) Bilateral pneumonia Qualifiers: Pneumonia type: due to unspecified organism Lung location: lower lobe of lung Qualified Code(s): J18.9 - Pneumonia, unspecified organism Is this a current diagnosis for this admission?: Yes (2) Person under investigation for severe acute respiratory syndrome coronavirus 2 (SARS-CoV-2) infection Is this a current diagnosis for this admission?: Yes (3) Acute on chronic respiratory failure with hypoxemia Is this a current diagnosis for this admission?: Yes (4) Cough Is this a current diagnosis for this admission?: Yes (5) Anxiety and depression Is this a current diagnosis for this admission?: Yes (6) COPD with acute exacerbation Is this a current diagnosis for this admission?: Yes (7) Neck pain, chronic Is this a current diagnosis for this admission?: Yes (8) Cigarette nicotine dependence Qualifiers: Substance use status: uncomplicated Qualified Code(s): F17.210 - Nicotine dependence, cigarettes, uncomplicated Is this a current diagnosis for this admission?: Yes 02/21/2020 Possible Covid pneumonia bilateral-ceftriaxone, azithromycin as well as guaifenesin, vitamin C, vitamin D, melatonin and IV Decadron. In addition inhaler therapy has been ordered. Acetaminophen is available for fever and the patient will be receiving IV fluids as well. Await Covid test results. Respiratory failure with hypoxemia-at rest the patient has adequate saturation but with minimal exertion she drops to below 90%. Will supplement oxygen to keep saturation greater than 90% if needed. Chronic obstructive pulmonary disease-despite the patient's report of specialist investigation without a COPD diagnosis her hyperinflated lungs with flattened di aphragms suggest otherwise. We will use a dual medication inhaler with as needed albuterol. She has inhalers and a nebulizer machine at home as well. We will try and avoid nebulizer treatments until Covid status is known. Anxiety and depression-the patient takes Seroquel at night to sleep. She takes another antidepressant medication in the morning. She was on Prozac but thinks it has changed. Await pharmacy's medication reconciliation for current list. Valium will be available if needed as well. Chronic neck pain-it appears that she uses [place] and Flexeril. Percocet and Flexeril have been ordered. Nicotine dependence-the patient smokes half pack of cigarettes every day. She requested a nicotine patch scheduled and not as needed. 02/22/2020 Eynrkfqxp-S-dxdvp was minimally elevated and CRP is elevated. Ferritin and LDH are normal. This could end up being just a bed bilateral pneumonia. I did increase the ceftriaxone to 2 g daily. Respiratory failure with hypoxemia-continue oxygen supplementation. Breo initiated. I have added montelukast. Continue IV Decadron. Albuterol inhalers also available. COPD-it is my opinion that the patient does have underlying COPD. There is evidence of Spiriva and Advair on previous prescriptions. We will further address at discharge. Anxiety and depression-I did speak to pharmacy. The pharmacy technologist is trying very hard to complete the medication reconciliation. She is making additional calls as there are lots of prescriptions that have not been filled for a while and the patient herself is not particularly helpful. I believe she is going to call the who likely has a better idea of what the patient is actually taking. Right now she is on the Seroquel and Valium. I have resumed BuSpar and Wellbutrin as we believe these are her current medications. If there is any feedback from the pharmacy technologist I will adjust medications accordingly. Chronic neck pain-currently with Flexeril and Percocet. 02/23/2020 Pneumonia is likely community-acquired as Covid testing is negative. Continue antibiotic therapy. COPD-very likely that patient does have COPD despite her denial. We will continue to treat. I will also encourage ongoing outpatient use of combined inhaler therapy Depression and anxiety-I believe we do have an accurate representation of her current medicines. She seems to be tolerating these. Continue same. Chronic neck pain-continue muscle relaxants and analgesia. The coughing certainly is not helping. Tobacco dependence-continue nicotine patch 02/25/2020 Patient is not on any steroids. We will continue antibiotics for another day and if she remains stable can be discharged in a.m. to complete her recuperation at home. Patient is still wheezing and she does have more rhonchi today 02/25 patient is still wheezing and does have rhonchi on clinical exam. She is not ready to be discharged. I will go ahead and order a chest x-ray and I have started on steroids and hopefully this will help. I have also adjusted her antitussive to scheduled as she is complaining of pleuritic chest pain. We will continue with antibiotics and check labs in a.m. - Time Time Spent with patient: 15-24 minutes Medications reviewed and adjusted accordingly: Yes Anticipated Discharge Disposition: Home, Self Care Anticipated Discharge Timeframe: within 48 hours
[2020-02-26] MEDS: GUAIFENESIN/CODEINE PHOS 100-10 MG/ 5 ML UDC PO SCH ×3 (11:43→23:09)
--- NOTE | 2020-02-26 12:28 | RADIOLOGY REPORT (SQ) ---
EXAM DESCRIPTION: CHEST SINGLE VIEW IMAGES COMPLETED DATE/TIME: 02/26/2020 12:02 pm REASON FOR STUDY: Pneumonia, COPD COMPARISON: 02/21/2020 EXAM PARAMETERS: NUMBER OF VIEWS: One view. TECHNIQUE: Single frontal radiographic view of the chest acquired. RADIATION DOSE: NA LIMITATIONS: None. FINDINGS: LUNGS AND PLEURA: No acute infiltrate or effusion. No mass. MEDIASTINUM AND HILAR STRUCTURES: No masses. Contour normal. HEART AND VASCULAR STRUCTURES: Heart normal in size. Normal vasculature. BONES: No acute findings. HARDWARE: None in the chest. OTHER: No other significant finding. IMPRESSION: NO ACUTE RADIOGRAPHIC FINDING IN THE CHEST. TECHNICAL DOCUMENTATION: JOB ID: [id number] [employer]- All Rights Reserved Reading location - IP/workstation name: [email or web address]
[2020-02-26] MEDS: PREDNISONE 20 MG TABLET PO SCH (17:58)
[2020-02-26] MEDS: QUETIAPINE FUMARATE 100 MG TABLET PO SCH (21:04)
[2020-02-26] MEDS: MONTELUKAST SODIUM 10 MG TABLET PO SCH (21:04)
[2020-02-27] MEDS: IPRATROPIUM/ALBUTEROL 0.5-2.5 MG/3 ML AMPUL NEB SCH ×2 (03:19→07:58)
[2020-02-27] MEDS: GUAIFENESIN/CODEINE PHOS 100-10 MG/ 5 ML UDC PO SCH (06:14)
[2020-02-27] MEDS: PANTOPRAZOLE SODIUM 40 MG TABLET.DR PO SCH (06:14)
[2020-02-27] MEDS: BUDESONIDE NEB 0.5 MG/2 ML AMPUL NEB SCH (07:58)
[2020-02-27 08:23] LABS: ABSOLUTE EOSINOPHILS # (AUTO) 0.1 10^3/uL (0.0-0.6); ABSOLUTE MONOCYTES (AUTO) 0.7 10^3/uL (0.1-1.4); ABSOLUTE NEUT (AUTO) 5.7 10^3/uL (1.7-8.2); BASOPHILS % (AUTO) 0.3 % (0-2); EOSINOPHILS % (AUTO) 0.7 % (0-6); HEMATOCRIT 35.4 % (36.0-47.0); HEMOGLOBIN 11.9 g/dL (12.0-15.5); LYMPHOCYTES % (AUTO) 31.4 % (13-45); MEAN CORPUSCULAR HEMOGLOBIN 29.8 pg (27.0-33.4); MEAN CORPUSCULAR HGB CONC 33.7 g/dL (32.0-36.0); MEAN CORPUSCULAR VOLUME 88 fl (80-97); MONOCYTES % (AUTO) 7.2 % (3-13); PLATELET COUNT 392 10^3/uL (150-450); SEGMENTED NEUTROPHILS % (AUTO) 60.4 % (42-78); TOTAL CELLS COUNTED % (AUTO) 100 %; WHITE BLOOD COUNT 9.5 10^3/uL (4.0-10.5)
[2020-02-27 08:30] VITALS: BP 126/69
[2020-02-27] MEDS ORDERED: GUAIFENESIN/CODEINE PHOS 100-10 MG/ 5 ML UDC PO SCH (08:30)
[2020-02-27 08:46] LABS: ANION GAP 12 (5-19); BLOOD UREA NITROGEN 10 mg/dL (7-20); CALCIUM 9.9 mg/dL (8.4-10.2); CARBON DIOXIDE 23 mmol/L (22-30); CHLORIDE 109 mmol/L (98-107); GLUCOSE 73 mg/dL (75-110); POTASSIUM 3.9 mmol/L (3.6-5.0)
[2020-02-27] MEDS: CEFTRIAXONE 2 GM/D5W RTU 2 GM/50 ML RTUPB IV SCH (09:36)
[2020-02-27] MEDS: BUSPIRONE HCL 10 MG TABLET PO SCH (09:37)
[2020-02-27] MEDS: DOCUSATE SODIUM 100 MG CAPSULE PO SCH (09:37)
[2020-02-27] MEDS: PREDNISONE 20 MG TABLET PO SCH (09:37)
[2020-02-27] MEDS: NICOTINE 14 MG/24 HR PATCH.TD24 TD SCH (09:37)
[2020-02-27] MEDS: AZITHROMYCIN 250 MG TABLET PO SCH (09:37)
[2020-02-27] MEDS: FLUTICASONE/VILANTEROL 100-25 MCG/DOSE IH SCH (09:38)
[2020-02-27] MEDS: ENOXAPARIN SODIUM INJ 40 MG/0.4 ML DISP.SYRIN SUBCUT SCH (09:39)
--- NOTE | 2020-02-27 10:19 | PDOC DISCHARGE SUMMARY ---
Impression - Admit/DC Date/PCP Admission Date/Primary Care Provider: 02/21/20 17:17 Discharge Date: 02/27/20 - Discharge Diagnosis (1) Acute on chronic respiratory failure with hypoxemia Is this a current diagnosis for this admission?: Yes (2) Anxiety and depression Is this a current diagnosis for this admission?: Yes (3) Bilateral pneumonia Is this a current diagnosis for this admission?: Yes (4) COPD exacerbation Is this a current diagnosis for this admission?: Yes (5) Cough Is this a current diagnosis for this admission?: Yes - Additional Information Resuscitation Status: Full Code Discharge Diet: Regular Discharge Activity: Balance Activity w/Rest Referrals: LINH CARR MD [COMMUNITY BASED STAFF] - 03/08/20 Prescriptions: Montelukast Sodium [Singulair 10 mg Tablet] 10 mg PO QHS #30 tablet Fluticasone/Vilanterol [Breo 100-25 Mcg Ellipta 14 Dose/Dpi] 1 inh IH DAILY #1 inhaler Prednisone [Deltasone 20 mg Tablet] 40 mg PO DAILY #8 tablet Azithromycin [Zithromax 250 mg Tablet] 250 mg PO DAILY #3 tablet Home Medications: Quetiapine Fumarate [Seroquel 100 mg Tablet] 400 mg PO QHS 06/20/14 Buspirone HCl [Buspar 15 mg Tablet] 15 mg PO Q8 08/26/17 Bupropion HCl [Bupropion Xl] 150 mg PO DAILY 02/22/20 Butalb/Acetaminophen/Caffeine [Fioricet (50-325-40 mg) Tablet] 1 tab PO Q4HP PRN 02/22/20 Hydroxyzine Pamoate [Vistaril 25 mg Capsule] 25 mg PO Q8HP PRN 02/22/20 Linaclotide [Linzess 145 Mcg Capsule] 145 mcg PO DAILY 02/22/20 Oxycodone HCl/Acetaminophen [Oxycodone-Acetaminophen 10-325] 1 each PO Q6HP PRN 02/22/20 Azithromycin [Zithromax 250 mg Tablet] 250 mg PO DAILY #3 tablet 02/27/20 Fluticasone/Vilanterol [Breo 100-25 Mcg Ellipta 14 Dose/Dpi] 1 inh IH DAILY #1 inhaler 02/27/20 Guaifenesin [Mucinex Sr 600 mg Tablet.sa] 600 mg PO Q12 tablet.sa 02/27/20 Montelukast Sodium [Singulair 10 mg Tablet] 10 mg PO QHS #30 tablet 02/27/20 Nicotine [Nicoderm 14 mg/24 Hr Transdermal Patch] 1 each TD DAILY patch.td24 02/27/20 Prednisone [Deltasone 20 mg Tablet] 40 mg PO DAILY #8 tablet 02/27/20 History of Present Illiness History of Present Illness: LINNETTE MCQUEEN is a 69 year old female Patient was admitted with difficulty breathing, shortness of breath and pleuritic chest pain and diagnosed with bilateral pneumonia. She with was started on intravenous antibiotics and admitted for further treatment. Hospital Course Hospital Course: Chest x-ray indeed did show bilateral airspace disease. She ruled out for Covid pneumonitis. She was felt to have atypical pneumonia. She also had acute on chronic respiratory failure as she was initially hypoxemic. Patient still has mild persistent cough although this has increased during her hospital stay. She also has underlying COPD and she had a mild exacerbation and she is to be discharged on steroids. Patient is otherwise remained hemodynamically stable and so she is being discharged home in stable condition Physical Exam Vital Signs: Temp Pulse Resp BP Pulse Ox 98.2 F 82 16 126/69 H 100 02/27/20 08:46 02/27/20 08:46 02/27/20 08:46 02/27/20 08:46 02/27/20 08:46 Intake & Output 02/26/20 02/27/20 02/28/20 06:59 06:59 06:59 Intake Total 1776 408 Output Total 400 Balance 1376 408 Weight 80.1 kg General appearance: PRESENT: no acute distress, well-developed, well-nourished Head exam: PRESENT: atraumatic, normocephalic Eye exam: PRESENT: conjunctiva pink, EOMI, PERRLA. ABSENT: scleral icterus Ear exam: PRESENT: normal external ear exam Mouth exam: PRESENT: tongue midline Neck exam: ABSENT: carotid bruit, JVD, lymphadenopathy, thyromegaly Respiratory exam: PRESENT: clear to auscultation [place]ison. ABSENT: rales, rhonchi, wheezes Cardiovascular exam: PRESENT: RRR. ABSENT: diastolic murmur, rubs, systolic murmur Pulses: PRESENT: normal dorsalis pedis pul Vascular exam: PRESENT: normal capillary refill GI/Abdominal exam: PRESENT: normal bowel sounds, soft. ABSENT: distended, guarding, mass, organolmegaly, rebound, tenderness Rectal exam: PRESENT: deferred Extremities exam: PRESENT: full ROM. ABSENT: calf tenderness, clubbing, pedal edema Neurological exam: PRESENT: alert, awake, oriented to person, oriented to place, oriented to time, oriented to situation, CN II-XII grossly intact. ABSENT: motor sensory deficit Psychiatric exam: PRESENT: appropriate affect, normal mood. ABSENT: homicidal ideation, suicidal ideation Skin exam: PRESENT: dry, intact, warm. ABSENT: cyanosis, rash Results Laboratory Results: WBC 9.5 10^3/uL (4.0-10.5) 02/27/20 07:25 RBC 4.00 10^6/uL (3.72-5.28) 02/27/20 07:25 Hgb 11.9 g/dL (12.0-15.5) L 02/27/20 07:25 Hct 35.4 % (36.0-47.0) L 02/27/20 07:25 MCV 88 fl (80-97) 02/27/20 07:25 MCH 29.8 pg (27.0-33.4) 02/27/20 07:25 MCHC 33.7 g/dL (32.0-36.0) 02/27/20 07:25 RDW 17.0 % (11.5-14.0) H 02/27/20 07:25 Plt Count 392 10^3/uL (150-450) 02/27/20 07:25 Lymph % (Auto) 31.4 % (13-45) 02/27/20 07:25 [place] % (Auto) 7.2 % (3-13) 02/27/20 07:25 Eos % (Auto) 0.7 % (0-6) 02/27/20 07:25 Baso % (Auto) 0.3 % (0-2) 02/27/20 07:25 Absolute Neuts (auto) 5.7 10^3/uL (1.7-8.2) 02/27/20 07:25 Absolute Lymphs (auto) 3.0 10^3/uL (0.5-4.7) 02/27/20 07:25 Absolute Monos (auto) 0.7 10^3/uL (0.1-1.4) 02/27/20 07:25 Absolute Eos (auto) 0.1 10^3/uL (0.0-0.6) 02/27/20 07:25 Absolute Basos (auto) 0.0 10^3/uL (0.0-0.2) 02/27/20 07:25 Seg Neutrophils % 60.4 % (42-78) 02/27/20 07:25 D-Dimer 1.26 ug/mL (0.00-0.50) H 02/21/20 15:05 Sodium 143.9 mmol/L (137-145) 02/27/20 07:25 Potassium 3.9 mmol/L (3.6-5.0) 02/27/20 07:25 Chloride 109 mmol/L (98-107) H 02/27/20 07:25 Carbon Dioxide 23 mmol/L (22-30) 02/27/20 07:25 Anion Gap 12 (5-19) 02/27/20 07:25 BUN 10 mg/dL (7-20) 02/27/20 07:25 Creatinine 0.41 mg/dL (0.52-1.25) L 02/27/20 07:25 Est GFR ( Amer) > 60 (>60) 02/27/20 07:25 Est GFR (MDRD) Non-Af > 60 (>60) 02/27/20 07:25 Glucose 73 mg/dL (75-110) L 02/27/20 07:25 Calcium 9.9 mg/dL (8.4-10.2) 02/27/20 07:25 Magnesium 1.9 mg/dL (1.6-2.3) 02/25/20 06:18 Ferritin 27.60 ng/mL (11.1-264.0) 02/21/20 15:05 Total Bilirubin 0.4 mg/dL (0.2-1.3) 02/21/20 15:05 Direct Bilirubin 0.2 mg/dL (0.0-0.4) 02/21/20 15:05 Neonat Total Bilirubin Not Reportable 02/21/20 15:05 Neonat Direct Bilirubin Not Reportable 02/21/20 15:05 Neonat Indirect Bili Not Reportable 02/21/20 15:05 AST 24 U/L (14-36) 02/21/20 15:05 ALT 15 U/L (<35) 02/21/20 15:05 Alkaline Phosphatase 144 U/L (38-126) H 02/21/20 15:05 Lactate Dehydrogenase 244 U/L (120-246) 02/21/20 15:05 Troponin I < 0.012 ng/mL 02/21/20 15:05 C-Reactive Protein 41.6 mg/L (<10.0) H 02/23/20 07:12 Total Protein 8.0 g/dL (6.3-8.2) 02/21/20 15:05 Albumin 4.4 g/dL (3.5-5.0) 02/21/20 15:05 COVID-19 Source See comment 02/21/20 15:15 COVID-19 ([facility]AR[facility]) Not Detected (Not Detect) 02/21/20 15:15 Influenza A (Rapid) NEGATIVE (NEGATIVE) 02/21/20 16:00 Influenza B (Rapid) NEGATIVE (NEGATIVE) 02/21/20 16:00 Group A Strep Rapid NEGATIVE (NEGATIVE) 02/21/20 17:40 02/21/20 15:05 Troponin I < 0.012 Impressions: Chest X-Ray 02/21/20 12:27 IMPRESSION: Mild ill-defined alveolar opacities which may indicate mild pulmonary edema or developing airspace disease. Chest X-Ray 02/26/20 00:00 IMPRESSION: NO ACUTE RADIOGRAPHIC FINDING IN THE CHEST. Plan Health Concerns: Patient is to follow-up with PCP for further evaluation and management Time Spent: Greater than 30 Minutes Stroke Is this a Stroke Patient?: No Acute Heart Failure Is this a Heart Failure Patient?: No
[2020-02-27] MEDS: GUAIFENESIN 600 MG TABLET.SA PO SCH (10:36)
[2020-02-27] MEDS: LUBIPROSTONE 24 MCG CAPSULE PO SCH (11:18)
[2020-02-27] MEDS: BUPROPION HCL 75 MG TABLET PO SCH (11:18)
[2020-02-27] MEDS: MELOXICAM 7.5 MG TABLET PO SCH (11:19)
== END 2020-02-27 11:36 | disposition home or self-care (01) | DRG 193 ==
LOC: ER 11:28 → EH 17:17 → 3N 02-22 00:27 → 3S 02-23 15:12 → 4S 02-24 20:26 → 2N 02-27 01:21
PROVIDERS: ADMIT Hospitalist; ATTEND Internal Medicine
DX: J18.9 Pneumonia, unspecified organism (principal); J96.01 Acute respiratory failure with hypoxia; J44.1 Chronic obstructive pulmonary disease with (acute) exacerbation; J44.0 Chronic obstructive pulmonary disease with (acute) lower respiratory infection; E78.5 Hyperlipidemia, unspecified; M54.2 Cervicalgia; F17.210 Nicotine dependence, cigarettes, uncomplicated; F41.8 Other specified anxiety disorders; Z20.828 Contact with and (suspected) exposure to other viral communicable diseases; K21.9 Gastro-esophageal reflux disease without esophagitis; Z90.49 Acquired absence of other specified parts of digestive tract; Z79.899 Other long term (current) drug therapy; Z23 Encounter for immunization; Z82.49 Family history of ischemic heart disease and other diseases of the circulatory system; Z83.3 Family history of diabetes mellitus
CPT/HCPCS: 36415; 71045; 80048; 80053; 82728; 83615; 83735; 84484; 85025; 85027; 85379; 86140; 87040; 87070; 87077; 87150; 87186; 87635; 87804; 87880; 90471; 90686; 93005; 93010; 94640; 94799; 96374; 99285; C9803; G0008; J0696; J1100; J1650; J2270; J2550; J2920; J2930; J3490; J7120; J7512